=== PATIENT | male | born 1980 | race Hispanic/Latino ===

== ENCOUNTER 2019-08-22 09:34 | Inpatient (IN) | payer OTHER, SELFPAY ==
[2019-08-22] MEDS ORDERED: Heparin 1,000 UNITS/ML VIAL ONE (10:00)
[2019-08-22 12:57] VITALS: BMI 36.5
[2019-08-22] MEDS ORDERED: Lidocaine 1% (PF) 30 ML VIAL ONE (13:42)
[2019-08-22] MEDS ORDERED: Ondansetron ODT 4 MG TAB PO PRN (15:12)
[2019-08-22] MEDS ORDERED: Ondansetron PF 4 MG/2 ML Vial IVP PRN (15:12)
[2019-08-22] MEDS ORDERED: traMADol HCl 50 MG TAB PO PRN (15:15)
[2019-08-22] MEDS ORDERED: Pharmacy to Dose 1 EACH VANCOMYCIN IVPB PRN (15:27)
[2019-08-22] MEDS: Acetaminophen 500 MG TAB PO PRN (16:08)
[2019-08-22] MEDS: Ibuprofen 600 MG TAB PO PRN (16:09)
[2019-08-22] MEDS: Morphine 2 MG/ML SYRINGE SLOW IVP PRN (16:09)
[2019-08-22] MEDS: Vancomycin HCl 1.75 GM in Sodium Chloride 0.9% 500 ML IVPB SCH (17:23)
--- NOTE | 2019-08-22 19:13 | HP ---
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 The patient states that 5 days ago, he experienced a fall in the oil field near [place] when he fell and hit the posterior aspect of his knee on a pipe. He continued to work and ambulate, but had progressively worsening pain. He went to the [place] [facility], where he said x-rays were not performed. He went to [facility] yesterday, where they appreciated cellulitis of his left leg. They treated him with antibiotics, Rocephin and Cleocin. They noted that there was not much improvement over the 12 hours he was there and requested asking for transfer. He was admitted directly to [facility] surgery floor. His white count today is 14,000, hemoglobin 14.5, sodium 136, potassium 3.9, glucose 168, creatinine 1, GFR 60, BUN 14. Liver function tests, normal. The patient had a CAT scan of his left lower extremity without IV contrast revealing absence of any fractures, but soft tissue swelling in the lower extremity due to cellulitis below the knee. There was no joint effusion. Ultrasound of the left leg revealed absence of DVT. The patient has been ambulatory. Denies any pain with flexion or extension of the knee. ALLERGIES: PENICILLIN. SOCIAL HISTORY: Tobacco, none. Alcohol, rarely. PAST SURGICAL HISTORY: Lumbar surgery years ago. PAST MEDICAL HISTORY: Noncontributory. REVIEW OF SYSTEMS: Noncontributory. PHYSICAL EXAMINATION: VITAL SIGNS: Height 5 feet 9 inches, 247 pounds, 36 BMI, temperature 98.5 degrees, heart rate 81, blood pressure 134/74. HEAD, EARS, EYES, NOSE, AND THROAT: Unremarkable. LUNGS: Clear to auscultation. CARDIAC: Regular rate and rhythm without murmur or gallop. ABDOMEN: Soft and nontender. No masses. No hernias. EXTREMITIES: Tattoo, posterior calf below his knee. There is some ecchymosis, posterior leg. There are cellulitis and tenderness over his anterior left leg. There is an area of fluctuance about 2 cm, midline, upper left leg below the knee. Good palpable pedal pulses. ASSESSMENT AND PLAN: Left leg cellulitis. No demonstrable abscess clinically, nor seen on CAT scan at [facility]. We will place him on clindamycin, cefepime, and vancomycin. Ask Pharmacy to dose the vancomycin. We will at the bedside drain collection below his knee, which was performed, and only a slight amount of old blood was seen, no purulent material; however, it was sent for culture. We will follow him clinically and observe him. Further radiological imaging per clinical course. Job ID: [id number]
[2019-08-22] MEDS: Enoxaparin Sodium 40 MG/0.4 ML SYRINGE SC SCH (20:42)
[2019-08-22] MEDS: Cefepime 2 GM in Sodium Chloride 0.9% 100 ML IVPB SCH (20:42)
[2019-08-22] MEDS ORDERED: Vancomycin HCl 1.5 GM in Sodium Chloride 0.9% 250 ML 300 ML IVPB SCH (21:00)
[2019-08-22] MEDS: Clindamycin/D5W 900 MG in Premix Bag 1 BAG IVPB SCH (22:17)
[2019-08-23] MEDS: Vancomycin HCl 1.75 GM in Sodium Chloride 0.9% 500 ML IVPB SCH ×2 (04:43→17:23)
[2019-08-23 05:03] LABS: ALT (SGPT) 36 U/L (8-55); AST (SGOT) 44 U/L (5-34); Albumin 2.7 g/dL (3.5-5.0); Alkaline Phosphatase 112 U/L (40-110); Anion Gap 9 mmol/L (10-20); BUN (Urea Nitrogen) 13 mg/dL (8.9-20.6); Bilirubin, Total 1.6 mg/dL (0.2-1.2); Calc. Creatinine Clearance 198 mL/min (70-130); Calcium 7.7 mg/dL (7.8-10.44); Carbon Dioxide 24 mmol/L (22-29); Chloride 107 mmol/L (98-107); Estimated GFR-MDRD Greater than 90; Glucose 130 mg/dL (70-105); Potassium 4.2 mmol/L (3.5-5.1); Protein, Total 5.7 g/dL (6.0-8.3); Sodium 136 mmol/L (136-145)
[2019-08-23 05:06] LABS: Hemoglobin A1c 4.8 % (4.0-6.0)
[2019-08-23 05:10] LABS: #Eosinphils 0.3 thou/uL (0.0-0.7); #Lymphocytes 0.9 thou/uL (1.20-3.40); #Monocytes 0.9 thou/uL (0.11-0.59); #Neutrophils 6.4 thou/uL (1.40-6.50); %Basophils 0.3 % (0.0-1.0); %Eosinophils 3.8 % (0.0-10.0); %Monocytes 10.4 % (0.0-10.0); %Neutrophils 75.5 % (42.0-75.0); Hemoglobin 13.9 g/dL (14.0-18.0); Mean Corpuscular HGB CONC 35.7 g/dL (32.0-36.0); Mean Corpuscular Hemoglobin 36.2 pg (27.0-31.0); Mean Platelet Volume 8.7 fL (7.4-10.4); Platelet Count 48 thou/uL (130-400); Platelet Morphology Comment Appears Decreased; RBC Distribution Width 12.8 % (11.5-14.5); Red Blood Cell (RBC) Count 3.84 mill/uL (4.70-6.10); White Blood Cell (WBC) Count 8.5 thou/uL (4.8-10.8)
[2019-08-23] MEDS: traMADol HCl 50 MG TAB PO PRN (07:05)
[2019-08-23] MEDS: Clindamycin/D5W 900 MG in Premix Bag 1 BAG IVPB SCH ×3 (08:15→21:59)
--- NOTE | 2019-08-23 08:24 | OP ---
DATE OF PROCEDURE: 08/22/2019 PREOPERATIVE DIAGNOSIS: Left leg cellulitis with small abscess, anterior upper leg below the knee. POSTOPERATIVE DIAGNOSIS: Left leg cellulitis with small abscess, anterior upper leg below the knee. PROCEDURES PERFORMED: Incision and drainage of abscess, simple. ANESTHESIA: 1% Xylocaine. DESCRIPTION OF PROCEDURE: The patient was at bedside. Left leg was prepared with ChloraPrep over the fluctuant area just below the knee in the upper anterior left leg. A small incision was made with 11 blade and some old bloody tissue, sent for culture. There was no purulence noted. We did undermine medially and laterally approximately 2 cm superiorly 0.5 cm and inferiorly 1 cm. There were no tracts appreciated. Wound was packed open with a gauze dressing, wrapped with Coban. The patient tolerated the procedure well. Job ID: [id number]
[2019-08-23] MEDS: Morphine 2 MG/ML SYRINGE SLOW IVP PRN (08:44)
[2019-08-23] MEDS: Ibuprofen 600 MG TAB PO PRN ×2 (08:45→15:02)
[2019-08-23] MEDS: Cefepime 2 GM in Sodium Chloride 0.9% 100 ML IVPB SCH ×2 (08:45→19:58)
[2019-08-23] MEDS: Acetaminophen 500 MG TAB PO PRN ×2 (08:45→15:02)
[2019-08-23] MEDS: Polyethylene Glycol 3350 17 GM Packet PO SCH (08:53)
--- NOTE | 2019-08-23 13:11 | PRG ---
DATE OF SERVICE: 08/23/2019 Vasiliy Chavez is doing well today. He has remained afebrile. This morning, his white count is 8, hemoglobin 13. The small hematoma fluid evacuated from his anterior proximal leg yesterday. Gram stain only reveals white cells. This is consistent with what was seen in his old blood. The patient continues to have pain in his anterior left leg with cellulitis. He had a CAT scan that demonstrated absence of any fracture, but we will obtain x-rays of his left leg and knee to assure there are no fractures. Continue antibiotics, elevation. He is ambulating without problems. Job ID: [id number]
--- NOTE | 2019-08-23 14:48 | RAD ---
FOUR VIEWS OF THE LEFT KNEE: COMPARISON: None. HISTORY: Left knee pain. FINDINGS: Four views of the left knee show no evidence of acute fracture or dislocation. No knee effusion is s een. Mild osteophytes are seen in all 3 compartments consistent with osteoarthritis. IMPRESSION: Mild left knee osteoarthritis without acute osseous abnormality. POS: TPC
--- NOTE | 2019-08-23 15:38 | RAD ---
TWO VIEWS LEFT TIBIA/FIBULA: 08/23/19 COMPARISON: None. HISTORY: Trauma with left leg pain. FINDINGS: Two views of the left tibia/fibula shows no evidence of acute fracture or dislocation. Moderate diffu se soft tissue swelling is seen. Phleboliths are seen in the pretibial soft tissues. IMPRESSION: No evidence of acute osseous abnormality. POS: TPC
[2019-08-23] MEDS: Enoxaparin Sodium 40 MG/0.4 ML SYRINGE SC SCH (21:55)
[2019-08-24] MEDS: Morphine 4 MG/ML VIAL SLOW IVP PRN (03:05)
[2019-08-24] MEDS: Vancomycin HCl 1.75 GM in Sodium Chloride 0.9% 500 ML IVPB SCH (04:01)
[2019-08-24] MEDS: Clindamycin/D5W 900 MG in Premix Bag 1 BAG IVPB SCH ×3 (06:56→22:25)
[2019-08-24] MEDS: Cefepime 2 GM in Sodium Chloride 0.9% 100 ML IVPB SCH ×2 (08:48→20:49)
[2019-08-24] MEDS: Acetaminophen 500 MG TAB PO PRN ×3 (08:48→20:54)
[2019-08-24] MEDS: Ibuprofen 600 MG TAB PO PRN ×3 (08:48→20:54)
[2019-08-24] MEDS: Morphine 2 MG/ML SYRINGE SLOW IVP PRN (08:48)
[2019-08-24] MEDS: Polyethylene Glycol 3350 17 GM Packet PO SCH (08:53)
--- NOTE | 2019-08-24 13:28 | PRG ---
DATE OF SERVICE: 08/24/2019 SUBJECTIVE: Vasiliy Chavez is doing well today. His left leg is not much better than yesterday. He still has cellulitis over the anterior leg. The patient's wound did not open, drained small hematoma, it is healthy. There is undermining. It was repacked with saline wet-to-dry dressing. Cultures obtained on 08/22/2019 are still pending. No organisms are seen. This clinically looks like an old hematoma. Currently, the patient is still having quite a bit of pain. X-rays of the leg are negative for fracture. CAT scan obtained from the emergency room was unremarkable per report except for soft tissue swelling. ASSESSMENT AND PLAN: Left leg cellulitis, infection of soft tissue. This is not improving, but it is not worsening. There is no blistering. There are no physical changes to suggest further surgical intervention at this time. He is allergic to penicillin. We will request that Dr. Samuels see him to see if he can add any other suggestion as far as antibiotic care and treatment to expedite discharging to home on oral therapy. We will await Dr. Samuels' opinion. Job ID: [id number]
--- NOTE | 2019-08-24 15:52 | ULT ---
LEFT LOWER EXTREMITY VENOUS DOPPLER EXAM: 08/24/19 HISTORY: Patient fell one week ago. Increasing swelling, edema and redness in cap and knee region. Real time color Doppler evaluation of the left lower extremity was performed from groin to calf . Thi s includes evaluation of the common femoral, superficial and profunda femoral, saphenous, popliteal a nd posterior tibial veins. This shows a patent deep venous system with normal compressibility and aug mentation. There are edema changes within the soft tissues of the calf. IMPRESSION: No evidence of DVT of the left lower extremity. POS: HAYDEN
[2019-08-24 16:39] LABS: Vancomycin, Trough 6.1 ug/mL
[2019-08-24] MEDS: Vancomycin HCl 1.5 GM in Sodium Chloride 0.9% 250 ML 300 ML IVPB SCH (17:28)
[2019-08-24] MEDS: Enoxaparin Sodium 40 MG/0.4 ML SYRINGE SC SCH (21:04)
[2019-08-24 23:14] LABS: HBSAB Concentration 0.42 mIU/mL; HBSAg Index 0.18 S/CO (0-0.99); HIV (1/2) Antibody/Antigen Non-Reactive (NonReactive); HIV 1/2 INDEX 0.08 S/CO (<1.00); Hep B Surf AB Non-Reactive (NonReactive); Hep B Surf Ag Non-Reactive S/CO (NonReactive); Hep C IgG Ab Non-Reactive (NonReactive); Hep C Index 0.07 S/CO (0-0.79)
[2019-08-25] MEDS: Vancomycin HCl 1.5 GM in Sodium Chloride 0.9% 250 ML 300 ML IVPB SCH ×3 (00:11→17:31)
--- NOTE | 2019-08-25 02:00 | CON ---
DATE OF CONSULTATION: 08/24/2019 REASON FOR CONSULTATION: Inflammatory process, left leg. HISTORY OF PRESENT ILLNESS: A 39-year-old who did not have much of a past medical history. He had a surgical procedure few years ago in the back. 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 His temperature is 98.5. He had limited debridement of a little spot in the infrapatellar area by Dr. Griffin and I reviewed his operative note. There were some bloody tissue noted, but no purulence. The wound was packed. He continues to have inflammatory changes extending from the calf wrapping around the entire calf all the way down to the ankle, but no single area of more prominence or discoloration. Denies any headaches. No visual symptoms, sore throat, odynophagia, dysphagia. No back pain, no shortness of breath or chest pain. No abdominal pain. No diarrhea. No genitourinary symptoms. No other joint symptoms. PAST MEDICAL HISTORY: Negative. PAST SURGICAL HISTORY: Lumbar laminectomy. ALLERGIES: PENICILLIN WITH RASH. 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 . Lives in [place]. No smoking. No drug use. Does not drink much. FAMILY HISTORY: Noncontributory. PHYSICAL EXAMINATION: VITAL SIGNS: He has been afebrile, T-max 99.2, blood pressure 130/70, pulse 72, respirations 18, O2 saturation 100. SKIN: Exam shows erythema with swelling of the left leg wrapped with a circumferential involvement of the calf. It does not involve much of the ankle. It is more circumscribed around the calf region close to the popliteal and pretty much the entire calf. There is a noticeable area of debridement in the anterior aspect right at the infrapatellar region. No other skin lesions. The patient has a number of tattoos in his body. No lymphadenopathy. HEENT: Ocular movements conjugate. Oral cavity normal. NECK: Supple. LUNGS: Symmetric, clear breath sounds. HEAR: Normal without murmurs. No S3 or S4. ABDOMEN: Soft, not distended or tender. No ascites. No bladder distention. No genital abnormalities. NEUROLOGIC: Nonfocal. Cognitive function is normal. LABORATORY DATA: White cell count 8.5, hemoglobin 13.9, platelets 40,000 with 75% neutrophils. Sodium 136, creatinine 0.78 with a bilirubin of 1.6, AST 44, albumin 2.7. Serum total protein 5.7. Vancomycin trough 6.1, and cultures from the area of debridement with no organisms seen. ASSESSMENT: 1. Inflammatory process left leg after injury while working in an oil rig. 2. Thrombocytopenia. 3. Abnormal liver function tests. DISCUSSION: The differential diagnosis includes cellulitis versus an abscess in the left calf region. The patient has thrombocytopenia and abnormal liver function tests and #1 concern is chronic liver disease, possible association with chronic hepatitis C or B. We will order an MRI of the leg to evaluate for abscess. If that is not present, then just treat as cellulitis. Regarding the possibility of chronic liver disease and cirrhosis, we will need hepatitis serology and liver ultrasound. Further assays/studies depending on results of hepatitis serology. The patients with chronic liver disease can develop gram-negative lottie cellulitis and will need to add coverage for that, if not yet initiated. Cefepime + Vanco is felt to be adequate for now. Job ID: [id number] MTDD
[2019-08-25] MEDS: Acetaminophen 500 MG TAB PO PRN ×3 (03:59→23:51)
[2019-08-25] MEDS: traMADol HCl 50 MG TAB PO PRN (03:59)
[2019-08-25] MEDS: Clindamycin/D5W 900 MG in Premix Bag 1 BAG IVPB SCH ×3 (05:25→21:23)
[2019-08-25] MEDS: Cefepime 2 GM in Sodium Chloride 0.9% 100 ML IVPB SCH ×2 (08:59→20:37)
[2019-08-25] MEDS: Polyethylene Glycol 3350 17 GM Packet PO SCH (08:59)
[2019-08-25] MEDS: Morphine 4 MG/ML VIAL SLOW IVP PRN ×2 (11:27→17:34)
[2019-08-25] MEDS: Ibuprofen 600 MG TAB PO PRN ×2 (11:27→23:51)
--- NOTE | 2019-08-25 15:44 | MRI ---
LEFT LOWER EXTREMITY MRI WITH AND WITHOUT IV CONTRAST: HISTORY: Left leg swelling and erythema, worsening. FINDINGS: Extensive diffuse subcutaneous edema and subcutaneous fat stranding. There is more focally prominent somewhat more focally fluid density changes in the superficial subcutaneous tissues anteriorly, prim arily overlying the tibia measuring approximately 0.9 cm in AP dimension and 9 cm in transverse dimen delilah, and approximately 15 cm in craniocaudal dimension. These findings are nonspecific and could re present some extensive focal edematous fluid. Certainly, the possibility of this fluid being infecte d is a consideration. If that is a concern, then incision and drainage might be considered. There i s some associated superficial fasciitis. There is some scattered mild superficial intramuscular sign al, evidence for possible myositis, particularly the anterior compartment and the anterior portion of the medial gastrocnemius muscle. There is some minimal fluid interposed between the soleus and the medial gastrocnemius muscle. No evidence for intramuscular abscess or myonecrosis. No evidence for necrosing fasciitis. No evidence for osteomyelitis. IMPRESSION: 1. Extensive subcutaneous fat stranding, evidence for edema and/or cellulitis. 2. Somewhat more focally prominent fluid in the superficial subcutaneous tissues, evidence for more focal infected versus noninfected subcutaneous superficial fluid. If there is concern that this is i nfected, followup incision and drainage might be considered. 3. Superficial fasciitis. 4. Evidence for superficial myositis, particularly involving the anterior compartment muscles as wel l as the portion of the medial gastrocnemius muscle with some fluid between the medial gastrocnemius muscle and the medial soleus muscle. No evidence for myonecrosis or deep necrosing fasciitis. POS: TPC
[2019-08-25 16:43] LABS: Vancomycin, Trough 18.9 ug/mL
--- NOTE | 2019-08-25 21:33 | PRG ---
DATE OF SERVICE: 08/25/2019 SUBJECTIVE: Mr. Chavez is doing well today. He is afebrile. He reports left leg swelling has gone down. Ultrasound of his left leg negative for DVT. Dr. Samuels has seen him and concurs with current antibiotic administration. Lower extremity MRI has been ordered. This demonstrates extensive subcutaneous fat stranding consistent with cellulitis. Some evidence of anterior compartment myositis and portion of the gastrocs muscle with some fluid present. No evidence for necrosis. No evidence for necrotizing fasciitis. ASSESSMENT/PLAN: Soft tissue infection left leg, traumatic, occurring on the job. This was definitely not present prior to his injury. This all occurred as a result of his injury. Continue intravenous antibiotics and await improvement. Job ID: [id number]
[2019-08-25] MEDS: Enoxaparin Sodium 40 MG/0.4 ML SYRINGE SC SCH ×2 (21:49→23:51)
[2019-08-26] MEDS: Vancomycin HCl 1.5 GM in Sodium Chloride 0.9% 250 ML 300 ML IVPB SCH ×3 (01:08→18:19)
[2019-08-26 04:10] LABS: #Eosinphils 0.2 thou/uL (0.0-0.7); #Lymphocytes 1.4 thou/uL (1.20-3.40); #Monocytes 0.5 thou/uL (0.11-0.59); #Neutrophils 4.6 thou/uL (1.40-6.50); %Basophils 0.7 % (0.0-1.0); %Eosinophils 3.2 % (0.0-10.0); %Lymphocytes 20.5 % (21.0-51.0); %Monocytes 7.7 % (0.0-10.0); %Neutrophils 67.9 % (42.0-75.0); Hemoglobin 13.9 g/dL (14.0-18.0); Mean Corpuscular HGB CONC 35.7 g/dL (32.0-36.0); Mean Corpuscular Hemoglobin 35.7 pg (27.0-31.0); Mean Platelet Volume 9.1 fL (7.4-10.4); Platelet Count 67 thou/uL (130-400); RBC Distribution Width 12.8 % (11.5-14.5); Red Blood Cell (RBC) Count 3.91 mill/uL (4.70-6.10); White Blood Cell (WBC) Count 6.8 thou/uL (4.8-10.8)
[2019-08-26] MEDS: Clindamycin/D5W 900 MG in Premix Bag 1 BAG IVPB SCH ×3 (05:34→21:28)
[2019-08-26] MEDS: Cefepime 2 GM in Sodium Chloride 0.9% 100 ML IVPB SCH ×2 (08:19→20:21)
[2019-08-26] MEDS: Polyethylene Glycol 3350 17 GM Packet PO SCH (08:20)
[2019-08-26] MEDS: traMADol HCl 50 MG TAB PO PRN (11:30)
[2019-08-26] MEDS: Morphine 2 MG/ML SYRINGE SLOW IVP PRN (14:17)
--- NOTE | 2019-08-26 14:51 | PRG ---
DATE OF SERVICE: 08/26/2019 SUBJECTIVE: Vasiliy Chavez is doing well today. His vital signs stable, afebrile. His leg feels slightly better. MRI scan reveals mild cytosis and edema, but no drainable fluid collection. He does have edema of the left ankle and foot and leg with some cellulitic changes. There is no obvious drainable fluid collection. Hepatitis serology and HIV serology negative. The patient states he does not drink significant alcohol. LABORATORY DATA: Platelet count 67,000. White count 6.8, hemoglobin 13. Bilirubin 1.6, AST 44, and alkaline phosphatase 112. ASSESSMENT AND PLAN: Left leg cellulitis, traumatic on the job injury. This was not preexisting. 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 Continue intravenous antibiotics. Dr. Samuels is following with me. He does have thrombocytopenia, etiology uncertain. Continue Lovenox as his thrombocytopenia is improved slightly even while on Lovenox. Job ID: [id number]
[2019-08-26] MEDS: Morphine 4 MG/ML VIAL SLOW IVP PRN (16:41)
[2019-08-26] MEDS: Enoxaparin Sodium 40 MG/0.4 ML SYRINGE SC SCH (20:22)
[2019-08-26] MEDS: Ibuprofen 600 MG TAB PO PRN (20:32)
[2019-08-26] MEDS: Acetaminophen 500 MG TAB PO PRN (20:33)
[2019-08-27] MEDS: Vancomycin HCl 1.5 GM in Sodium Chloride 0.9% 250 ML 300 ML IVPB SCH ×3 (00:41→17:11)
[2019-08-27] MEDS: Clindamycin/D5W 900 MG in Premix Bag 1 BAG IVPB SCH ×2 (05:44→14:19)
[2019-08-27] MEDS: Cefepime 2 GM in Sodium Chloride 0.9% 100 ML IVPB SCH (09:02)
[2019-08-27] MEDS: Polyethylene Glycol 3350 17 GM Packet PO SCH (09:05)
[2019-08-27] MEDS: Acetaminophen 500 MG TAB PO PRN ×2 (09:06→20:43)
[2019-08-27] MEDS: Ibuprofen 600 MG TAB PO PRN ×2 (09:06→20:44)
--- NOTE | 2019-08-27 14:48 | PRG ---
DATE OF SERVICE: 08/27/2019 SUBJECTIVE: Vasiliy Chavez is doing well today. His leg looks so much better. He is ambulating better. There is less swelling in the leg, less cellulitis. ASSESSMENT AND PLAN: Improvement of his left leg. I would recommend he be discharged home tomorrow on oral antibiotics. We will talk to Dr. Samuels about his oral antibiotic regimen. Plan is to discharge home tomorrow, if he continues to do well. Job ID: [id number]
--- NOTE | 2019-08-27 15:12 | PRG ---
DATE OF SERVICE: 08/27/2019 SUBJECTIVE: Feeling better, still areas of tenderness in the left leg as noted below. No headaches, visual symptoms, sore throat, odynophagia, dysphagia. No cough or sputum production, no chest pain, no abdominal pain or diarrhea. OBJECTIVE: VITAL SIGNS: T-max 98.6, blood pressure 130/80, pulse 68, respirations 16, O2 saturation 99. EXTREMITIES: The left leg still with areas of swelling and erythema and some areas of what appears to be early blistering in the proximal anterior left leg. The popliteal fossa appears normal. Most of the inflammatory process are localized in the anterior parts of the left leg. No drainage is noted at this point in time. LUNGS: Clear. HEART: S1, S2. No murmurs. No S3. ABDOMEN: Soft, not distended or tender. No bladder distention. LABORATORY DATA: White cell count 6.8, hemoglobin 13.9, platelets 67,000, and 67% neutrophils. Sodium 138, creatinine 0.78 with a bilirubin 1.6, AST 44. ASSESSMENT AND DISCUSSION: 1. Cellulitis, left leg, following injury. 2. Abnormal liver function tests with thrombocytopenia. The hepatitis serology was negative. The liver ultrasound was not ordered yet. We will go ahead and order a liver ultrasound and check his antinuclear antibody test and ferritin, iron and iron binding capacity. In terms of continuation of treatment, still quite a bit of inflammation there and in view of the lack of microbiological information, we will consider continuation of IV antimicrobial therapy in the outpatient setting for another 7 to 14 days. PICC line placement. This will allow early discharge planning. Job ID: [id number]
[2019-08-27] MEDS: cefTRIAXone\\ROCEPHIN 2 GM in Sodium Chloride 0.9% 100 ML IVPB SCH (16:55)
--- NOTE | 2019-08-27 18:35 | ULT ---
COMPLETE ABDOMEN ULTRASOUND: Indication: Abnormal lfts with thrombocytopenia. Comparison: None. FINDINGS: There is cirrhotic morphology of the liver. No focal hepatic lesion is identified. The spleen is enlarged measuring 13.83 cm. Gallbladder is decompressed. No Germain's sign is reported. Common bile duct measures 2.9 mm. Pancreas is obscured by overlying bowel gas. The right kidney measures 13 cm in length and the left measures 14.7 cm. Right renal cortex is 1.7 cm , left measures 1.9 cm. No hydronephrosis is evident. There is hepatopedal flow seen within the main portal vein. IMPRESSION: Findings of cirrhosis with portal hypertension. POS: BH
[2019-08-27 19:23] LABS: Iron 46 ug/dL (65-175); Iron Binding Capacity, Total 175 mcg/dL (261-462)
[2019-08-27] MEDS: Enoxaparin Sodium 40 MG/0.4 ML SYRINGE SC SCH (20:43)
[2019-08-28] MEDS: Vancomycin HCl 1.5 GM in Sodium Chloride 0.9% 250 ML 300 ML IVPB SCH ×3 (00:49→17:05)
[2019-08-28] MEDS: Polyethylene Glycol 3350 17 GM Packet PO SCH (09:08)
[2019-08-28 10:58] LABS: ANA Symphony (Qualitative) Negative (Negative); ANA Symphony (Quantitative) 0.3 Ratio (< 0.7 Negative); dsDNA IgG Antibody 1.1 IU/mL (<10 Negative)
[2019-08-28] MEDS: traMADol HCl 50 MG TAB PO PRN (15:50)
[2019-08-28] MEDS: cefTRIAXone\\ROCEPHIN 2 GM in Sodium Chloride 0.9% 100 ML IVPB SCH (15:51)
[2019-08-28 16:19] LABS: Vancomycin, Trough 10.3 ug/mL
[2019-08-28] MEDS ORDERED: Clopidogrel Bisulfate 75 MG TAB ONE (18:01)
[2019-08-28] MEDS: Vancomycin HCl 1.75 GM in Sodium Chloride 0.9% 500 ML IVPB SCH (18:11)
--- NOTE | 2019-08-28 19:29 | PRG ---
DATE OF SERVICE: 08/28/2019 Vasiliy Chavez is doing well today. His ultrasound demonstrated cirrhosis. His hepatitis serology is negative. Gastroenterology, Dr. Caldwell Has Seen Him, his dictation is pending. Followup outpatient recommended. Dr. Samuels recommended a PICC line. I will order the PICC line, and Dr. Samuels will arrange outpatient antibiotics. Overall, his left leg is better. Anticipate discharge in the next day or 2 once outpatient antibiotic regimen is arranged by Dr. Samuels. Job ID: [id number]
--- NOTE | 2019-08-28 19:30 | CON ---
DATE OF CONSULTATION: 08/28/2019 REQUESTING PHYSICIAN: Erasto Griffin MD REASON FOR CONSULTATION: Cirrhosis. HISTORY OF PRESENT ILLNESS: Vasiliy Chavez is a very pleasant 39-year-old man, who was admitted to the hospital on 08/22/2019 with lower extremity cellulitis. He has a history of prior back surgery, but otherwise no significant past medical or surgical history. He has multiple family members with diabetes, but no known family history of liver disease. He has been receiving broad-spectrum antibiotics. He has also been found on laboratory studies to have thrombocytopenia as well as mild LFT elevation. An abdominal ultrasound was performed yesterday and demonstrated cirrhotic morphology of the liver as well as mild splenomegaly and hepatopetal flow in the portal vein. The patient says he has no more than 6 to 8 alcoholic beverages in the course of a week. No drug use. He denies any prior history of liver disease or hepatitis. There is no history of jaundice, ascites, encephalopathy, or GI bleeding. He is currently asymptomatic aside from his lower extremity cellulitis. REVIEW OF SYSTEMS: Full review of systems including constitutional, head, eyes, ears, nose, throat, GI, , cardiovascular, respiratory, musculoskeletal, and neurologic systems is negative except as noted in the HPI. PAST MEDICAL HISTORY: Lumbar spine surgery years ago and lower extremity cellulitis. ALLERGIES: PENICILLIN. INPATIENT MEDICATIONS: 1. Tylenol p.r.n. 2. Ceftriaxone 2 g IV q.24 hours. 3. Lovenox. 4. Ibuprofen p.r.n. 5. Morphine p.r.n. 6. Tramadol p.r.n. 7. Vancomycin 1.5 g q.8 hours IV. SOCIAL HISTORY: He will have 6 to 8 alcoholic beverages over the course of weekend. No smoking. No drug use. FAMILY HISTORY: Negative for liver disease that he knows of. PHYSICAL EXAMINATION: VITAL SIGNS: Temperature 98.6, pulse 74, blood pressure 155/89, and 99% oxygen saturation on room air. GENERAL: A 39-year-old man, lying in bed comfortably, in no distress. SKIN: Multiple tattoos in the upper extremities bilaterally. No jaundice. EYES: No scleral icterus. Extraocular movements intact. ENT: Mucous membranes moist. No oral lesions. LYMPH: No submandibular or supraclavicular lymphadenopathy. THYROID: Nontender to palpation. HEART: Regular rate and rhythm. LUNGS: Clear to auscultation bilaterally. ABDOMEN: Soft and nontender to palpation. EXTREMITIES: No peripheral edema. VESSELS: Radial pulses 2+ bilaterally. NEUROLOGIC: Cranial nerves 2 through 12 intact bilaterally. No asterixis. MENTAL: Alert and fully oriented, pleasant, conversational. Can give a detailed coherent history. LABORATORY STUDIES: WBC 6.8, hemoglobin 13.9, platelets 67. BUN 13, creatinine 0.78. Total bilirubin 1.6, alkaline phosphatase 112, AST 44, ALT 36, albumin 2.7, ferritin 519, iron 46, TIBC 175, and AFP 4. Hepatitis B surface antigen negative. Hepatitis B surface antibody negative. Hepatitis C antibody negative. HIV antibody negative. IMAGING STUDIES: Abdominal ultrasound from yesterday demonstrates cirrhotic morphology of the liver, but no focal hepatic lesion, splenomegaly to 13.8 cm, hepatopetal flow in the portal vein, normal-appearing gallbladder and common bile duct. ASSESSMENT AND PLAN: 1. Cirrhosis, well compensated, unknown etiology at this point. 2. Thrombocytopenia, secondary to splenomegaly and portal hypertension. The patient does indeed appear to have cirrhosis based on characteristic liver morphology as well as evidence of portal hypertension and thrombocytopenia. Otherwise, this appears to be very well compensated with no prior known history of liver disease. I am not sure I can blame alcohol completely for this, given the amount of consumption that he reports. I note the negative viral hepatitis serologies. We will go ahead and round out laboratory studies to include hemochromatosis genetic profile, ASMA, AMA, ceruloplasmin, and alpha-1 antitrypsin level. We will get an INR with morning labs as well. This can all be followed up in the outpatient setting, which we will try to arrange depending on results, due to his relatively young age, he may be one in which we seriously consider sending for liver biopsy at some point. In the meantime, I did advise him to completely avoid all alcohol going forward. We will plan for outpatient EGD for variceal screening at some point as well. He will need HCC screening with abdominal ultrasound and AFP level at least every 6 months, and I explained this to him in detail. GI will sign off, but plan for outpatient followup and lab review in the near future. Thank you for the consultation. Please call anytime with questions or concerns. Job ID: [id number]
[2019-08-28] MEDS: Enoxaparin Sodium 40 MG/0.4 ML SYRINGE SC SCH (21:30)
[2019-08-29] MEDS: Vancomycin HCl 1.75 GM in Sodium Chloride 0.9% 500 ML IVPB SCH ×3 (02:07→18:34)
[2019-08-29] MEDS: Acetaminophen 500 MG TAB PO PRN (03:05)
[2019-08-29 05:13] LABS: INR-International Normal Ratio 1.3; Prothrombin Time 16.4 SEC (12.0-14.7)
[2019-08-29] MEDS: Polyethylene Glycol 3350 17 GM Packet PO SCH (09:04)
--- NOTE | 2019-08-29 16:11 | SPC ---
Ultrasound and Fluoroscopic guided left upper extremity PICC placement HISTORY: Lower extremity infection. Patient needs long-term IV antibiotics. FINDINGS: Informed consent obtained prior to the procedure. An appropriate access site was determined with ultrasound guidance. The area was then meticulously pr epped and draped in usual sterile fashion. Skin overlying the left basilic vein anesthetized with 1% buffered lidocaine. Utilizing direct sonogr aphic guidance, vascular access is obtained via the left basilic vein, and an 0.018in guidewire was advanced to the cavoatrial junction. Intravascular length is calculated at 40.5 cm, and the PICC is c ut accordingly. Needle is removed and replaced with a peel-away sheath. The PICC was advanced over the wire. Wire and peel-away sheath were removed. The tip of the catheter overlies the cavoatrial junction. The catheter was accessed and aspirated/flushed easily. Exposure data: 0.6 minutes of fluoroscopic time 5682 mGy centimeter squared FINDINGS: Technically successful placement of a 40.5 centimeter single lumen 5 Romansh left upper extremity PICC line. IMPRESSION: Successful ultrasound guided placement of a left upper extremity PICC.
[2019-08-29] MEDS: cefTRIAXone\\ROCEPHIN 2 GM in Sodium Chloride 0.9% 100 ML IVPB SCH (17:16)
[2019-08-29 17:29] LABS: Vancomycin, Trough 15.4 ug/mL
--- NOTE | 2019-08-29 17:38 | PRG ---
DATE OF SERVICE: 08/29/2019 SUBJECTIVE: Feeling better. There is a lot of drainage of purulent material from the infrapatellar area and feels much better now that this happened, had a PICC line placed. No chest pain, shortness of breath, or abdominal pain. No diarrhea. No genitourinary symptoms. OBJECTIVE: VITAL SIGNS: His temperature has been normal for a while now. Other vital signs are normal. GENERAL: Awake, alert, and oriented. LUNGS: Clear. HEART: S1 and S2, regular rate. ABDOMEN: Soft, not distended. SKIN: The left infrapatellar region with an open wound, which I probed and sent cultures. The area of erythema centered mostly around this area. LABORATORY DATA: White cell count 6.8, hemoglobin 13.9, platelets 67,000. ASSESSMENT AND DISCUSSION: Cellulitis, probably abscess, infrapatellar region, now became more clear. Abnormal liver function tests with thrombocytopenia. Negative hepatitis serology. The ferritin was elevated at 519. The iron was 46 and TIBC was low at 175, percent saturation was low at 26. DOMINICK was negative. The abdomen ultrasound demonstrated findings of cirrhosis with portal hypertension. The patient has liver cirrhosis of uncertain etiology and now presented with inflammatory process, likely infrapatellar bursitis, left lower extremity. We will discharge him on IV daptomycin. He will need to follow up for his liver cirrhosis with Gastroenterology. He does have portal hypertension and probably will need an EGD to evaluate for esophageal varices and will need to complete the workup for the etiology. It seems like he is going to turn up with idiopathic liver cirrhosis. May need a liver biopsy for diagnostic evaluation. Regarding his infrapatellar infection, probably an abscess and methicillin-resistant Staphylococcus aureus/methicillin-susceptible Staphylococcus aureus is most likely culprit here. Cultures have been submitted. We will plan on daptomycin downstairs for about 10 days approximately. Follow up the results of cultures. Job ID: [id number]
--- NOTE | 2019-08-29 19:01 | PRG ---
DATE OF SERVICE: 08/29/2019 SUBJECTIVE: Vasiliy Chavez is doing well today. The patient has had his PICC line placed. We are awaiting Dr. Samuels' and case worker's arrangement for outpatient antibiotics. Anticipate discharge home tomorrow on antibiotics. There has been no change in his left lower leg status, possibly will improve with slow improvement on a daily basis. Job ID: [id number]
[2019-08-29] MEDS: Enoxaparin Sodium 40 MG/0.4 ML SYRINGE SC SCH (20:25)
[2019-08-29] MEDS: Morphine 2 MG/ML SYRINGE SLOW IVP PRN (20:36)
[2019-08-30] MEDS: Vancomycin HCl 1.75 GM in Sodium Chloride 0.9% 500 ML IVPB SCH ×2 (01:46→09:54)
[2019-08-30] MEDS: Polyethylene Glycol 3350 17 GM Packet PO SCH (09:43)
[2019-08-30 11:42] LABS: EliA Vaculitis New Method **** NEW METHOD ****
[2019-08-30 15:11] VITALS: BP 144/78; TEMP 97.8
[2019-08-30] MEDS: cefTRIAXone\\ROCEPHIN 2 GM in Sodium Chloride 0.9% 100 ML IVPB SCH (15:32)
--- NOTE | 2019-08-30 16:40 | PRG ---
DATE OF SERVICE: 08/30/2019 SUBJECTIVE: Vasiliy Chavez is doing well today. Arrangements were made for outpatient antibiotics. Overall, his leg looks better, but still inflamed, still reddened with chronic inflammatory changes. It is distiller, but less so. Doing well. Has a PICC line in place. PLAN: Outpatient antibiotics have been arranged by Dr. Samuels. Leg is without fluctuance or any indication for surgical drainage. Job ID: [id number]
[2019-08-31 14:11] LABS: Alpha-1-Antitrypsin 208 mg/dL (90-200); Smooth Muscle Total ABS 15 Units (0-19)
== END 2019-08-30 17:50 | disposition home or self-care (01) | DRG 603 ==
LOC: SURG B 12:37
PROVIDERS: ADMIT Specialist; ATTEND Specialist
PROC: 0H9LXZZ Drainage of Left Lower Leg Skin, External Approach (ICD-10-PCS; principal; 2019-08-22)
PROC: 02HV33Z Insertion of Infusion Device into Superior Vena Cava, Percutaneous Approach (ICD-10-PCS; 2019-08-29)
PROC: B548ZZA Ultrasonography of Superior Vena Cava, Guidance (ICD-10-PCS; 2019-08-29)
PROC: B5181ZA Fluoroscopy of Superior Vena Cava using Low Osmolar Contrast, Guidance (ICD-10-PCS; 2019-08-29)
DX: L03.116 Cellulitis of left lower limb (principal); K76.6 Portal hypertension; L02.416 Cutaneous abscess of left lower limb; Z88.0 Allergy status to penicillin; D69.6 Thrombocytopenia, unspecified; Z79.899 Other long term (current) drug therapy; Z98.890 Other specified postprocedural states; K74.60 Unspecified cirrhosis of liver; R94.5 Abnormal results of liver function studies; R16.1 Splenomegaly, not elsewhere classified
CPT/HCPCS: 36415; 36416; 36569; 76700; 80053; 80202; 81256; 82103; 82104; 82105; 82390; 82728; 83036; 83516; 83540; 83550; 85025; 85610; 86038; 86225; 86706; 86803; 87070; 87077; 87186; 87205; 87340; 87389; C1751; J0692; J0696; J1644; J1650; J2001; J2270; J3370; J3490; J7050

== ENCOUNTER 2019-09-15 14:42 | Inpatient (IN) | payer OTHER, SELFPAY ==
[2019-09-15 16:40] LABS: #Basophils 0.1 thou/uL (0.0-0.2); #Eosinphils 0.2 thou/uL (0.0-0.7); #Lymphocytes 1.6 thou/uL (1.20-3.40); #Monocytes 0.4 thou/uL (0.11-0.59); #Neutrophils 2.2 thou/uL (1.40-6.50); %Basophils 1.2 % (0.0-1.0); %Eosinophils 4.6 % (0.0-10.0); %Monocytes 8.2 % (0.0-10.0); %Neutrophils 49.9 % (42.0-75.0); Hemoglobin 14.5 g/dL (14.0-18.0); Mean Corpuscular HGB CONC 34.6 g/dL (32.0-36.0); Mean Corpuscular Hemoglobin 34.8 pg (27.0-31.0); Mean Platelet Volume 9.2 fL (7.4-10.4); Platelet Count 56 thou/uL (130-400); RBC Distribution Width 12.9 % (11.5-14.5); Red Blood Cell (RBC) Count 4.16 mill/uL (4.70-6.10); White Blood Cell (WBC) Count 4.3 thou/uL (4.8-10.8)
[2019-09-15 17:02] LABS: ALT (SGPT) 36 U/L (8-55); AST (SGOT) 49 U/L (5-34); Albumin 3.3 g/dL (3.5-5.0); Alkaline Phosphatase 205 U/L (40-110); Anion Gap 11 mmol/L (10-20); BUN (Urea Nitrogen) 5 mg/dL (8.9-20.6); Bilirubin, Total 1.4 mg/dL (0.2-1.2); CK (CPK) 84 U/L (30-200); Calc. Creatinine Clearance 0 mL/min (70-130); Calcium 8.7 mg/dL (7.8-10.44); Carbon Dioxide 23 mmol/L (22-29); Chloride 106 mmol/L (98-107); Estimated GFR-MDRD Greater than 90; Glucose 95 mg/dL (70-105); Potassium 3.8 mmol/L (3.5-5.1); Protein, Total 7.3 g/dL (6.0-8.3); Sodium 136 mmol/L (136-145)
[2019-09-15] MEDS ORDERED: Piperacillin/Tazobactam 3.375 GM VIAL ONE (18:01)
[2019-09-15] MEDS ORDERED: Ondansetron ODT 4 MG TAB SL PRN (19:50)
[2019-09-15] MEDS ORDERED: Acetaminophen 325 MG TAB PO PRN (19:50)
[2019-09-15] MEDS ORDERED: Ondansetron PF 4 MG/2 ML Vial IVP PRN (19:50)
[2019-09-15 21:25] VITALS: BMI 35.2
--- NOTE | 2019-09-16 10:22 | CON ---
DATE OF CONSULTATION: CHIEF COMPLAINT: Left leg infection. HISTORY OF PRESENT ILLNESS: This is a 39-year-old male, who sustained a fall in the oil [place] on August 17, hit the back part of his lower leg on a pipe. He developed cellulitis that subsequently had an I and D on the 22 of August that grew Staph aureus. X-ray showed no knee effusion. On the , he had an ultrasound that was negative for DVT. On the , he had an MRI that showed diffuse stranding and fluid with possible myositis and fasciitis. He was found to have elevated LFTs and a low platelet count. He was diagnosed to have cirrhosis with portal hypertension. He says that he is being treated with a PICC line and IV antibiotics as an outpatient with Dr. Samuels. Dr. Samuels has noticed a new area of swelling below this area. This started draining seropurulent fluid and sent to the hospital for I and D. He had breakfast this morning. 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 PAST SURGICAL HISTORY: He has had back surgery and I and D. SOCIAL HISTORY: He drinks alcohol daily. No tobacco. He has a live-in girlfriend. ALLERGIES: HE HAS AN ALLERGY TO PENICILLIN. MEDICATIONS: He has just the IV antibiotics. FAMILY HISTORY: Diabetes. PHYSICAL EXAMINATION: VITAL SIGNS: Temperature 98.2, pulse 73, and blood pressure 123/69. GENERAL: Well-developed, well-nourished male, in no apparent distress. HEENT: Unremarkable. LUNGS: Clear. HEART: Regular rate and rhythm. ABDOMEN: Soft, nondistended, and nontender. EXTREMITIES: He is ambulating well. He has full range of motion of the knee. He has some soft tissue swelling and edema of the left isidro and anterior lower leg. There are 3 sinus tracts starting about 4 cm from the base of the patella in the midline distally. They are draining seropurulent fluid. There is soft tissue swelling that is more focal inferior to this area. LABORATORY DATA: His white count is 4.3, H and H are 14 and 41, and platelet count of 56,000. His INR is 1.3, PT of 16. His hepatitis panel was negative. His T-bili is 1.4, AST of 49, and alkaline phosphatase of 205. ASSESSMENT: 1. Abscess and cellulitis, inadequately drained. 2. Thrombocytopenia and cirrhosis at higher risks for more advanced surgery, but he needs a more thorough surgery. PLAN: N.p.o. after midnight. I and D of this area with irrigation with the pulse document manager, will need wound VAC. Job ID: [id number]
--- NOTE | 2019-09-16 12:50 | PDOC.HHP ---
Hospitalist HPI - History of Present Illness Left leg cellulitis History of Present Illness: He fell about one month ago, sustained some skin erosion which was later complicated by cellulitis for which he was in the hospital. he was on outpatient antibiotics with no improvement...was admitted for abscess along with cellulitis.. He has cirrhosis of the liver due to ETOH abuse. Hospitalist ROS - Review of Systems Constitutional: denies: fever, chills, sweats, weakness, malaise, other Eyes: denies: pain, vision change, conjunctivae inflammation, eyelid inflammation, redness, other ENT: denies: ear pain, ear discharge, nose pain, nose discharge, nose congestion , mouth pain, mouth swelling, throat pain, throat swelling, other Respiratory: denies: cough, dry, shortness of breath, hemoptysis, SOB with excertion, pleuritic pain, sputum, wheezing, other Cardiovascular: denies: chest pain, palpitations, orthopnea, paroxysmal noc. dyspnea, edema, light headedness, other Gastrointestinal: denies: nausea, vomiting, abdominal pain, diarrhea, constipation, melena, hematochezia, other Genitourinary: denies: dysuria, frequency, incontinence, hematuria, retention, other Musculoskeletal: reports: other (Tenderness and drainage is upper half of tibial /fibular area...) Skin: reports: other (As mentioned above..) Neurological: denies: weakness, numbness, incoordination, change in speech, confusion, seizures, other - Medication Medications: Active Medications Generic Name Dose Route Start Last Admin Trade Name Freq PRN Reason Stop Dose Admin Sodium Chloride 10 ml 09/15/19 21:00 09/15/19 20:59 Flush - Normal Saline IVF 10 ml Q12HR SUMMER Administration Hospitalist History - Past Medical History Source: patient Cardiac: denies: no pertinent history, AFIB, CAD, CHF, HTN, AR, Syncope, Hyperlipidemia, Mitral valve stenosis, Aortic stenosis, Valve insufficiency, Pulmonary hypertension, Other Pulmonary: denies: no pertinent history, angina, asthma, bronchitis, CVA/TIA/ stroke, congestive heart failure, COPD, deep vein thrombosis, emphysema, heart attack, high cholesterol, HIV/AIDS, hypertension, lung disease, pneumonia, previously intubated, pulmonary embolism, Other MOLD CLOSER: denies: no pertinent history, Carpal Tunnel Syndrome, CVA, Dementia, Migraine, Peripheral neuropathy, Seizure, TIA, Vertigo, Other Heme/Onc: reports: Other. denies: no pertinent history, Anemia NOS, B12 deficiency, Cancer, Hemochromatosis, Iron deficiency anemia, Sickle cell disease , Sickle cell trait Hepatobiliary: reports: Cirrhosis (Due to ETOH abuse.) - Past Surgical History Past Surgical History: reports: Other (Lower back laminectomy..) - Family History Family History: reports: no pertinent history - Social History Smoking Status: Never smoker Alcohol: reports: Heavy Drugs: denies: none, cocaine, heroine, marijuana, methamphetamine, Other - Exam Eye: PERRL, anicteric sclera ENT: normocephalic atraumatic, no oropharyngeal lesions, moist mucosa Neck: supple, symmetric, no JVD, no thyromegaly, no lymphadenopathy, no carotid bruit Heart: RRR, no murmur, no gallops Respiratory: CTAB Gastrointestinal: soft, non-tender, non-distended, normal bowel sounds, no palpable masses, no hepatomegaly Extremities: no cyanosis, no edema Skin - other findings: Left leg abscess/cellulitis Neurological: cranial nerve grossly intact, no focal deficits Musculoskeletal: normal tone, normal strength Psychiatric: normal affect, A&O x 3 Hospitalist Results - Labs Result Diagrams: 09/15/19 16:09 09/15/19 16:09 Lab results: WBC 4.3 thou/uL (4.8-10.8) L 09/15/19 16:09 Hgb 14.5 g/dL (14.0-18.0) 09/15/19 16:09 Hct 41.9 % (42.0-52.0) L 09/15/19 16:09 MCV 101.0 fL (78.0-98.0) H 09/15/19 16:09 Plt Count 56 thou/uL (130-400) L 09/15/19 16:09 Neutrophils % 49.9 % (42.0-75.0) 09/15/19 16:09 Sodium 136 mmol/L (136-145) 09/15/19 16:09 Potassium 3.8 mmol/L (3.5-5.1) 09/15/19 16:09 Chloride 106 mmol/L (98-107) 09/15/19 16:09 Carbon Dioxide 23 mmol/L (22-29) 09/15/19 16:09 BUN 5 mg/dL (8.9-20.6) L 09/15/19 16:09 Creatinine 0.73 mg/dL (0.7-1.3) 09/15/19 16:09 Glucose 95 mg/dL (70-105) 09/15/19 16:09 Lactic Acid 1.0 mmol/L (0.5-2.2) 09/15/19 16:09 Calcium 8.7 mg/dL (7.8-10.44) 09/15/19 16:09 Total Bilirubin 1.4 mg/dL (0.2-1.2) H 09/15/19 16:09 AST 49 U/L (5-34) H 09/15/19 16:09 ALT 36 U/L (8-55) 09/15/19 16:09 Alkaline Phosphatase 205 U/L (40-110) H 09/15/19 16:09 Creatine Kinase 84 U/L (30-200) 09/15/19 16:09 Serum Total Protein 7.3 g/dL (6.0-8.3) 09/15/19 16:09 Albumin 3.3 g/dL (3.5-5.0) L 09/15/19 16:09 Hospitalist H&P A/P - Problem (1) Abscess of leg, left Code(s): L02.416 - CUTANEOUS ABSCESS OF LEFT LOWER LIMB Status: Acute Assessment and Plan: On antibiotics.. General surgery consulted.. (2) Cirrhosis of liver Code(s): K74.60 - UNSPECIFIED CIRRHOSIS OF LIVER Status: Acute Assessment and Plan: Due to ETOH abuse. - Plan Plan: As above. For I&D
--- NOTE | 2019-09-16 18:28 | PRG ---
DATE OF SERVICE: 09/16/2019 SUBJECTIVE: Mr. Chavez readmitted after I re-evaluated him downstairs in the infusion area and saw that there was a clear-cut abscess formation which was quite extensive along the anterior aspect of his left lower extremity. He has been admitted, and Dr. Aguilar plus Dr. Covington are planning intervention tomorrow. Otherwise, he feels okay. He has no headaches. No shortness of breath, abdominal pain, or diarrhea. No genitourinary symptoms. OBJECTIVE: VITAL SIGNS: His vital signs are normal. GENERAL: He is in no distress, oriented. LUNGS: Clear. HEART: S1 and S2, regular rate. ABDOMEN: Soft, not distended or tender. EXTREMITIES: Left leg with area of fluctuance in 2/3 sinus tracts with drainage. Staphylococcus aureus retrieved from the abscess, which is Methicillin-sensitive strain. ASSESSMENT AND DISCUSSION: Abscess at infrapatellar region extending towards the mid and lower segments of the anterior left leg associated with chronic liver disease, pending surgical i+d. Evidence of cirrhosis of unknown etiology at this point in time. The patient will be transitioned to cefazolin in view of the susceptibilities of the organism and surgical procedure. Subsequently, he will need a workup for his chronic liver disease as it does not appear to be autoimmune hepatitis or chronic viral hepatitis, serologies are negative. Possibility of steatohepatitis or another form of chronic liver disease with cirrhosis, and he probably will need a liver biopsy. Job ID: [id number] MTDD
[2019-09-16] MEDS ORDERED: FLU VACC QS2019-20(6MOS UP)/PF 60 MCG/0.5 ML SYRINGE IM ONE (21:00)
[2019-09-16] MEDS ORDERED: Vancomycin HCl 1 GM in Premix Bag 1 BAG IVPB SCH (21:00)
--- NOTE | 2019-09-16 21:05 | CON ---
DATE OF CONSULTATION: 09/16/2019 HISTORY OF PRESENT ILLNESS: Mr. 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 He had an irrigation and debridement on August 22, where a small incision was made on the anterior aspect of the proximal left leg. He grew out Staph aureus. X-rays showed no involvement of the left knee joint. On August 25, the patient had an MRI, which showed diffuse stranding and fluid with possible myositis and fasciitis. He has been treated with IV antibiotics per Dr. Samuels, but the patient continues to have 3 draining wounds on the anterior aspect of the proximal leg, 1 in the proximal leg and 2 in the mid leg. PAST MEDICAL HISTORY: Medical illnesses: Cirrhosis secondary to alcohol. PAST SURGICAL HISTORY: Above-mentioned I and D of the left leg and also back surgery. ALLERGIES: TO PENICILLIN. PHYSICAL EXAMINATION: VITAL SIGNS: The patient has been afebrile. Vital signs have been stable. EXTREMITIES: The left leg shows a 1.5- to 2-cm open wound on the anterior proximal aspect of the left leg just lateral to the tibial crest and 2 small draining wounds on the anterior aspect of the mid leg. There is swelling and erythema over the skin that extends from the most proximal open wound to the distal wound. There is some seropurulent drainage. IMPRESSION: Abscess, cellulitis, and possible fasciitis of the left leg. PLAN: I talked with Dr. Gregory Aguilar and we will plan on performing more extensive irrigation and debridement of the left leg tomorrow. The patient's questions were answered and agreed to the procedure. Job ID: [id number]
[2019-09-16] MEDS: CEFAZOLIN 2 GM in Premix Bag 1 BAG IVPB SCH (22:02)
[2019-09-17] MEDS: CEFAZOLIN 2 GM in Premix Bag 1 BAG IVPB SCH ×3 (06:01→21:49)
[2019-09-17] MEDS ORDERED: Midazolam HCl 2 mg/2 ml Vial ONE (07:02)
[2019-09-17] MEDS ORDERED: Fentanyl 100 MCG/2 ML VIAL ONE ×3 (07:02→09:55)
[2019-09-17] MEDS ORDERED: Lidocaine 2% Jelly 5 ML TUBE ONE (07:02)
[2019-09-17] MEDS ORDERED: Clindamycin/D5W 600 mg/50 ml Premix Bag ONE (08:07)
[2019-09-17] MEDS ORDERED: Ondansetron PF 4 MG/2 ML Vial ONE (08:20)
[2019-09-17] MEDS ORDERED: PROPOFOL 200 MG/20 ML VIAL ONE (08:20)
[2019-09-17] MEDS ORDERED: Lidocaine 1% PF 5 ML VIAL ONE (08:20)
[2019-09-17] MEDS ORDERED: Dexamethasone 20 MG/5 ML VIAL ONE (08:20)
[2019-09-17] MEDS ORDERED: Promethazine HCl 25 MG/ML VIAL SLOW IVP PRN (09:10)
[2019-09-17] MEDS ORDERED: Promethazine HCl 25 MG/ML VIAL IM PRN (09:10)
[2019-09-17] MEDS ORDERED: Ondansetron HCl/PF 4 MG/2 ML Vial IVP PRN (09:10)
[2019-09-17] MEDS ORDERED: Ondansetron PF 4 MG/2 ML Vial IVP PRN (09:26)
--- NOTE | 2019-09-17 10:57 | PDOC.HOSPP ---
- Subjective Encounter Date: 09/17/19 Encounter Time: 09:40 Subjective: Sedated, s/p I&D - Objective Vital Signs & Weight: Weight Weight 238 lb 8.642 oz I&O: 09/16/19 09/17/19 09/18/19 06:59 06:59 06:59 Intake Total 350 1095 Balance 350 1095 Result Diagrams: 09/15/19 16:09 09/15/19 16:09 Hospitalist ROS - Medication Medications: Active Medications Generic Name Dose Route Start Last Admin Trade Name Freq PRN Reason Stop Dose Admin Cefazolin Sodium/Dextrose 2 gm 50 mls @ 100 mls/hr 09/16/19 22:00 09/17/19 06 :01 / Device IVPB 50 mls Q8HR SUMMER Administration Sodium Chloride 10 ml 09/15/19 21:00 09/16/19 19:56 Flush - Normal Saline IVF 10 ml Q12HR SUMMER Administration - Exam Neck: no JVD Heart: RRR Respiratory: CTAB Gastrointestinal: soft Extremities: no edema Extremities - other findings: s/p I&D of left leg.. Hosp A/P (1) Abscess of leg, left Code(s): L02.416 - CUTANEOUS ABSCESS OF LEFT LOWER LIMB Status: Acute Plan: With associated Faciiais, s/p I&D (2) Cirrhosis of liver Code(s): K74.60 - UNSPECIFIED CIRRHOSIS OF LIVER Status: Acute - Plan Continue antibiotics... f/u with general surgery
[2019-09-17] MEDS: Morphine 4 MG/ML VIAL SLOW IVP PRN (14:15)
[2019-09-18] MEDS: CEFAZOLIN 2 GM in Premix Bag 1 BAG IVPB SCH ×3 (05:45→22:03)
--- NOTE | 2019-09-18 09:57 | PRG ---
DATE OF SERVICE: 09/18/2019 SUBJECTIVE: The patient is doing well. Pain is better. They tried to put a VAC on yesterday, but evidently it was oozing too much blood, so they just packed it again. They are going to try again today. OBJECTIVE: VITAL SIGNS: On examination, his temperature is 98.4 pulse 73, blood pressure 152/71. GENERAL: He looks good. EXTREMITIES: There is very minimal bleeding on the dressing. It looks fairly dry. He has good palpable pulses. He denies any kind of numbness or tingling on his foot. ASSESSMENT: Necrotizing fasciitis of the left lower leg, improved. PLAN: Wound care. He will probably need to be set up with outpatient wound care because he will need this wound VAC changed 3 times a week, but he lives here locally. Job ID: [id number]
[2019-09-18] MEDS: Morphine 4 MG/ML VIAL SLOW IVP PRN (11:56)
--- NOTE | 2019-09-18 12:36 | OP ---
DATE OF PROCEDURE: 09/17/2019 PREOPERATIVE DIAGNOSIS: Abscess and cellulitis of the left lower leg. POSTOPERATIVE DIAGNOSIS: Necrotizing fasciitis. MICROBIOLOGY LAB ANALYST: Kyle Covington MD. PROCEDURE PERFORMED: Incision, drainage, and debridement of necrotizing fasciitis and abscess of left lower leg. 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 He had a limited I and D on the 22 of August which grew Staph. Over the last month, he has had a PICC line and has been on IV antibiotics and he is getting more and more little sinus tracts poking up along his isidro. FINDINGS: Extensive necrotizing fasciitis over the tibia and the fascia of the tibia had to be debrided off and both anterior compartments. It was an 18 cm skin incision. DESCRIPTION OF PROCEDURE: After informed consent was obtained, the patient was taken to the operating room. He was given general endotracheal anesthesia and placed in supine position. His left leg was prepped and draped in usual fashion. A longitudinal incision along the tibia was performed to connect all the fistulous tracts, wound up being about 18 cm from just at the bottom of the patella tendon to the lower tibia. The subcutaneous fat was necrotic and saponification had occurred. Also, the fascia was necrotic as well. This necrotic tissue was sharply debrided with [place] scissors and electrocautery and knife extensively undermining the area to remove the necrotic tissue. Hemostasis was achieved utilizing electrocautery. Then, the cultures had also been obtained during surgery. The pulse customer services supervisor was used with 6 L of saline. Hemostasis achieved with electrocautery. The patient has very low platelet count due to cirrhosis, so some Surgicel was then placed upon the exposed muscle and a sterile bandage applied. The patient tolerated the procedure well, transferred to Recovery in good condition. Sponge and needle count verified correct x2. Job ID: [id number]
--- NOTE | 2019-09-18 13:07 | PDOC.HOSPP ---
- Subjective Encounter Date: 09/18/19 Encounter Time: 13:04 Subjective: no fever,chills - Objective Vital Signs & Weight: Vital Signs (12 hours) Temp Pulse Resp BP Pulse Ox 09/18/19 08:00 97 09/18/19 07:43 98.4 F 73 16 152/71 H 97 Weight Admit Weight 238 lb 8.642 oz Weight 238 lb 8.642 oz I&O: 09/17/19 09/18/19 09/19/19 06:59 06:59 06:59 Intake Total 1095 1640 240 Balance 1095 1640 240 Result Diagrams: 09/15/19 16:09 09/15/19 16:09 Hospitalist ROS - Medication Medications: Active Medications Generic Name Dose Route Start Last Admin Trade Name Freq PRN Reason Stop Dose Admin Cefazolin Sodium/Dextrose 2 gm 50 mls @ 100 mls/hr 09/16/19 22:00 09/18/19 05 :45 / Device IVPB 50 mls Q8HR SUMMER Administration Morphine Sulfate 4 mg 09/17/19 09:25 09/18/19 11:56 Morphine SLOW IVP 4 mg Q4H PRN Administration Severe Pain (7-10) Sodium Chloride 10 ml 09/15/19 21:00 09/18/19 11:57 Flush - Normal Saline IVF 10 ml Q12HR SUMMER Administration - Exam General Appearance: awake alert Neck: no JVD Heart: RRR, no murmur Respiratory: CTAB Gastrointestinal: soft, normal bowel sounds Gastrointestinal - other findings: bandaged left calf Hosp A/P (1) Necrotizing fasciitis of lower leg Code(s): M72.6 - NECROTIZING FASCIITIS Status: Acute (2) Liver cirrhosis, alcoholic Code(s): K70.30 - ALCOHOLIC CIRRHOSIS OF LIVER WITHOUT ASCITES Status: Acute (3) Thrombocytopenia Code(s): D69.6 - THROMBOCYTOPENIA, UNSPECIFIED Status: Acute - Plan iv antibx wound care eventual wound vac
[2019-09-18] MEDS: Lidocaine 4% Topical Sol 50 ML BOT TOP SCH (14:28)
--- NOTE | 2019-09-18 19:30 | PRG ---
DATE OF SERVICE: 09/18/2019 SUBJECTIVE: The patient had debridement by Dr. Aguilar, and he did find a quite extensive area of inflammatory changes involving all the way to the fascia with evidence of necrosis. It was a quite extensive process. The pulse center consultant was used for washout, and sterile bandage was applied. He denies any respiratory symptoms. No abdominal pain. No genitourinary symptoms. OBJECTIVE: VITAL SIGNS: He has been afebrile. LUNGS: Clear. HEART: S1 and S2. Regular rate. ABDOMEN: Soft. The wound showed the elliptical incision with exposed areas of fascia and muscle, that have been debrided. It looks pretty healthy at this point in time. LABORATORY DATA: The white cell count is at 4.3 from 2 days ago. It has not been repeated since. Creatinine 0.73. Repeat cultures thus far, negative. Gram stain did not show any organisms. ASSESSMENT AND DISCUSSION: Abscess, infrapatellar region extending towards the mid and lower segments, anterior leg with evidence of saponification and necrosis of the fascia. This was followed for a burned-out case of necrotizing fasciitis limited to the areas of involvement. He will continue with the wound care and probably be not going to need much more antimicrobial therapy or may be able to be transitioned to oral antimicrobials and the continuation of wound care in the outpatient setting. Job ID: [id number]
[2019-09-18] MEDS: HYDROcodone/Acetaminophen 10/325 mg Tablet PO PRN (22:51)
[2019-09-19] MEDS: CEFAZOLIN 2 GM in Premix Bag 1 BAG IVPB SCH ×3 (05:41→20:37)
--- NOTE | 2019-09-19 09:45 | PRG ---
DATE OF SERVICE: 09/19/2019 SUBJECTIVE: The patient says he feels a lot better, really no significant pain. He has a wound VAC applied. OBJECTIVE: VITAL SIGNS: His temperature is 97.9, pulse 62, blood pressure 111/71. Really no recorded output from the wound VAC. GENERAL: On examination he looks good. EXTREMITIES: He has mild pedal edema. Good pulses. NEUROLOGIC: Normal neurologic exam. ASSESSMENT: Doing well. PLAN: Home wound VAC and home wound care. Discharge when that is arranged. Job ID: [id number]
[2019-09-19] MEDS: HYDROcodone/Acetaminophen 10/325 mg Tablet PO PRN (09:56)
--- NOTE | 2019-09-19 10:18 | PDOC.HOSPP ---
- Subjective Encounter Date: 09/19/19 Encounter Time: 10:16 Subjective: no complaints - Objective Vital Signs & Weight: Vital Signs (12 hours) Temp Pulse Resp BP Pulse Ox 09/19/19 07:43 97.9 F 62 18 111/71 98 Weight Admit Weight 238 lb 8.642 oz Weight 238 lb 8.642 oz I&O: 09/18/19 09/19/19 09/20/19 06:59 06:59 06:59 Intake Total 1640 1420 Balance 1640 1420 Result Diagrams: 09/15/19 16:09 09/15/19 16:09 Hospitalist ROS - Medication Medications: Active Medications Generic Name Dose Route Start Last Admin Trade Name Freq PRN Reason Stop Dose Admin Hydrocodone Bitart/Acetaminophen 1 tab 09/17/19 09:25 09/19/19 09:56 [place] 10/325 PO 1 tab Q4H PRN Administration Mild-Moderate Pain (1-5) Hydrocodone Bitart/Acetaminophen 2 tab 09/17/19 09:25 09/18/19 22:51 [place] 10/325 PO 2 tab Q4H PRN Administration Moderate Pain (4-6) Cefazolin Sodium/Dextrose 2 gm 50 mls @ 100 mls/hr 09/16/19 22:00 09/19/19 05 :41 / Device IVPB 50 mls Q8HR SUMMER Administration Lidocaine HCl 0 ml 09/18/19 12:08 09/18/19 14:28 Xylocaine 4% Topical Nidhi TOP 20 ml MoWeFr SUMMER Administration Morphine Sulfate 4 mg 09/17/19 09:25 09/18/19 11:56 Morphine SLOW IVP 4 mg Q4H PRN Administration Severe Pain (7-10) Sodium Chloride 10 ml 09/15/19 21:00 09/19/19 10:00 Flush - Normal Saline IVF 10 ml Q12HR SUMMER Administration Sodium Chloride 10 ml 09/15/19 19:50 09/18/19 14:39 Flush - Normal Saline IVF 10 ml PRN PRN Administration Saline Flush - Exam Neck: no JVD Heart: RRR, no murmur Respiratory: CTAB Gastrointestinal: soft, normal bowel sounds Extremities - other findings: wound vac L leg Hosp A/P (1) Necrotizing fasciitis of lower leg Code(s): M72.6 - NECROTIZING FASCIITIS Status: Acute (2) Liver cirrhosis, alcoholic Code(s): K70.30 - ALCOHOLIC CIRRHOSIS OF LIVER WITHOUT ASCITES Status: Acute (3) Thrombocytopenia Code(s): D69.6 - THROMBOCYTOPENIA, UNSPECIFIED Status: Acute - Plan iv antibx DC on po meds when wound vac and outpt wound care arranged
[2019-09-20] MEDS: CEFAZOLIN 2 GM in Premix Bag 1 BAG IVPB SCH ×3 (05:43→21:13)
[2019-09-20] MEDS: Morphine 4 MG/ML VIAL SLOW IVP PRN (11:41)
[2019-09-20] MEDS: Lidocaine 4% Topical Sol 50 ML BOT TOP SCH (11:47)
--- NOTE | 2019-09-20 13:05 | PDOC.HOSPP ---
- Subjective Encounter Date: 09/20/19 Encounter Time: 13:04 Subjective: no complaints - Objective Vital Signs & Weight: Vital Signs (12 hours) Temp Pulse Resp BP Pulse Ox 09/20/19 08:00 96 09/20/19 07:46 98.2 F 62 18 128/76 96 Weight Admit Weight 238 lb 8.642 oz Weight 238 lb 8.642 oz I&O: 09/19/19 09/20/19 09/21/19 06:59 06:59 06:59 Intake Total 1420 1250 Balance 1420 1250 Result Diagrams: 09/15/19 16:09 09/15/19 16:09 Hospitalist ROS - Medication Medications: Active Medications Generic Name Dose Route Start Last Admin Trade Name Freq PRN Reason Stop Dose Admin Hydrocodone Bitart/Acetaminophen 1 tab 09/17/19 09:25 09/19/19 09:56 [place] 10/325 PO 1 tab Q4H PRN Administration Mild-Moderate Pain (1-5) Hydrocodone Bitart/Acetaminophen 2 tab 09/17/19 09:25 09/18/19 22:51 [place] 10/325 PO 2 tab Q4H PRN Administration Moderate Pain (4-6) Cefazolin Sodium/Dextrose 2 gm 50 mls @ 100 mls/hr 09/16/19 22:00 09/20/19 05 :43 / Device IVPB 50 mls Q8HR SUMMER Administration Lidocaine HCl 0 ml 09/18/19 12:08 09/20/19 11:47 Xylocaine 4% Topical Nidhi TOP 1 ml MoWeFr SUMMER Administration Morphine Sulfate 4 mg 09/17/19 09:25 09/20/19 11:41 Morphine SLOW IVP 4 mg Q4H PRN Administration Severe Pain (7-10) Sodium Chloride 10 ml 09/15/19 21:00 09/20/19 11:47 Flush - Normal Saline IVF 10 ml Q12HR SUMMER Administration Sodium Chloride 10 ml 09/15/19 19:50 09/19/19 14:19 Flush - Normal Saline IVF 10 ml PRN PRN Administration Saline Flush - Exam Neck: no JVD Heart: no murmur Respiratory: CTAB Gastrointestinal: soft, normal bowel sounds Extremities: no edema Extremities - other findings: wound vac Hosp A/P (1) Necrotizing fasciitis of lower leg Code(s): M72.6 - NECROTIZING FASCIITIS Status: Acute (2) Liver cirrhosis, alcoholic Code(s): K70.30 - ALCOHOLIC CIRRHOSIS OF LIVER WITHOUT ASCITES Status: Acute (3) Thrombocytopenia Code(s): D69.6 - THROMBOCYTOPENIA, UNSPECIFIED Status: Acute - Plan iv antibx DC on po meds when wound vac and outpt wound care arranged
[2019-09-20] MEDS: HYDROcodone/Acetaminophen 10/325 mg Tablet PO PRN (13:25)
[2019-09-21] MEDS: CEFAZOLIN 2 GM in Premix Bag 1 BAG IVPB SCH ×3 (05:48→21:18)
--- NOTE | 2019-09-21 14:53 | PDOC.HOSPP ---
- Subjective Encounter Date: 09/21/19 Encounter Time: 14:51 Subjective: fine - Objective Vital Signs & Weight: Vital Signs (12 hours) Temp Pulse Resp BP Pulse Ox 09/21/19 08:00 97 09/21/19 07:41 97.6 F 62 20 117/73 97 Weight Admit Weight 238 lb 8.642 oz Weight 238 lb 8.642 oz I&O: 09/20/19 09/21/19 09/22/19 06:59 06:59 06:59 Intake Total 1250 1050 Balance 1250 1050 Result Diagrams: 09/15/19 16:09 09/15/19 16:09 Hospitalist ROS - Medication Medications: Active Medications Generic Name Dose Route Start Last Admin Trade Name Freq PRN Reason Stop Dose Admin Hydrocodone Bitart/Acetaminophen 1 tab 09/17/19 09:25 09/19/19 09:56 [place] 10/325 PO 1 tab Q4H PRN Administration Mild-Moderate Pain (1-5) Hydrocodone Bitart/Acetaminophen 2 tab 09/17/19 09:25 09/20/19 13:25 [place] 10/325 PO 2 tab Q4H PRN Administration Moderate Pain (4-6) Cefazolin Sodium/Dextrose 2 gm 50 mls @ 100 mls/hr 09/16/19 22:00 09/21/19 14 :35 / Device IVPB 50 mls Q8HR SUMMER Administration Lidocaine HCl 0 ml 09/18/19 12:08 09/20/19 11:47 Xylocaine 4% Topical Nidhi TOP 1 ml MoWeFr SUMMER Administration Morphine Sulfate 4 mg 09/17/19 09:25 09/20/19 11:41 Morphine SLOW IVP 4 mg Q4H PRN Administration Severe Pain (7-10) Sodium Chloride 10 ml 09/15/19 21:00 09/21/19 14:36 Flush - Normal Saline IVF 10 ml Q12HR SUMMER Administration Sodium Chloride 10 ml 09/15/19 19:50 09/19/19 14:19 Flush - Normal Saline IVF 10 ml PRN PRN Administration Saline Flush - Exam Neck: no JVD Heart: RRR, no murmur Respiratory: CTAB Gastrointestinal: soft, normal bowel sounds Extremities: no clubbing Hosp A/P (1) Necrotizing fasciitis of lower leg Code(s): M72.6 - NECROTIZING FASCIITIS Status: Acute (2) Liver cirrhosis, alcoholic Code(s): K70.30 - ALCOHOLIC CIRRHOSIS OF LIVER WITHOUT ASCITES Status: Acute (3) Thrombocytopenia Code(s): D69.6 - THROMBOCYTOPENIA, UNSPECIFIED Status: Acute - Plan iv antibx DC on po meds when wound vac and outpt wound care arranged
[2019-09-21] MEDS: HYDROcodone/Acetaminophen 10/325 mg Tablet PO PRN (17:05)
[2019-09-22] MEDS: CEFAZOLIN 2 GM in Premix Bag 1 BAG IVPB SCH ×3 (04:40→21:11)
[2019-09-22] MEDS: Morphine 4 MG/ML VIAL SLOW IVP PRN (11:43)
[2019-09-22] MEDS: Lidocaine 4% Topical Sol 50 ML BOT TOP SCH (13:55)
[2019-09-22] MEDS ORDERED: traMADol HCl 50 MG TAB PO PRN (17:05)
--- NOTE | 2019-09-22 17:08 | PDOC.HOSPP ---
- Subjective Subjective: Seen and examined. Follow-up for lower extremity wound, wound VAC in place. Patient is pending set up about patient wound care and wound VAC. Case management consultation has been placed. Status post debridement. Breathing well on room air. Not using IV or oral pain medication. Patient medically stable for lower level of care. - Objective Vital Signs & Weight: Vital Signs (12 hours) Temp Pulse Resp BP Pulse Ox 09/22/19 08:00 98 09/22/19 07:21 98.2 F 66 18 117/65 98 Weight Admit Weight 238 lb 8.642 oz Weight 238 lb 8.642 oz I&O: 09/21/19 09/22/19 09/23/19 06:59 06:59 06:59 Intake Total 1050 1250 710 Balance 1050 1250 710 Result Diagrams: 09/15/19 16:09 09/15/19 16:09 Hospitalist ROS - Review of Systems All other systems reviewed; all pertinent +/- noted in HPI/Subj - Medication Medications: Active Medications Generic Name Dose Route Start Last Admin Trade Name Freq PRN Reason Stop Dose Admin Hydrocodone Bitart/Acetaminophen 1 tab 09/17/19 09:25 09/19/19 09:56 [place] 10/325 PO 1 tab Q4H PRN Administration Mild-Moderate Pain (1-5) Cefazolin Sodium/Dextrose 2 gm 50 mls @ 100 mls/hr 09/16/19 22:00 09/22/19 15 :32 / Device IVPB 50 mls Q8HR SUMMER Administration Lidocaine HCl 0 ml 09/18/19 12:08 09/22/19 13:55 Xylocaine 4% Topical Nidhi TOP Not Given MoWeFr SUMMER Sodium Chloride 10 ml 09/15/19 21:00 09/22/19 08:18 Flush - Normal Saline IVF 10 ml Q12HR SUMMER Administration Sodium Chloride 10 ml 09/15/19 19:50 09/19/19 14:19 Flush - Normal Saline IVF 10 ml PRN PRN Administration Saline Flush - Exam General Appearance: NAD, awake alert Eye: anicteric sclera ENT: moist mucosa Neck: supple, symmetric, no lymphadenopathy Heart: RRR, no murmur, no gallops, no rubs Respiratory: CTAB, no wheezes, no rales, no ronchi Gastrointestinal: soft, no guarding, no rigidity Extremities: no edema Skin: no lesions, no rashes Neurological: cranial nerve grossly intact, no weakness, no focal deficits Musculoskeletal: normal strength Psychiatric: normal affect, A&O x 3 Hosp A/P (1) Abscess of leg, left Code(s): L02.416 - CUTANEOUS ABSCESS OF LEFT LOWER LIMB Status: Acute (2) Necrotizing fasciitis of lower leg Code(s): M72.6 - NECROTIZING FASCIITIS Status: Acute - Plan Plan: medical unit infectious disease consultation, recommendations appreciated general surgery consultation, recommendations appreciated case management consultation requested, recommendations appreciated status post debridement wound VAC intact needs outpatient wound care/wound VAC set up prior to discharge on IV antibiotics, oral antibiotics on discharge per infectious disease specialist Pain control Progressing well, stable for lower level of care
[2019-09-23] MEDS: CEFAZOLIN 2 GM in Premix Bag 1 BAG IVPB SCH ×3 (05:20→21:09)
--- NOTE | 2019-09-23 13:05 | PDOC.HOSPP ---
- Subjective Subjective: Pain and examined. No acute overnight events. No new complaints. Wound VAC in place. Patient progressing as expected. Walking labs are on the abarca. Waiting for wound VAC/wound care to be set up in the outpatient setting. - Objective Vital Signs & Weight: Vital Signs (12 hours) Temp Pulse Resp BP Pulse Ox 09/23/19 08:00 95 09/23/19 07:34 98.4 F 60 19 107/57 L 95 Weight Admit Weight 238 lb 8.642 oz Weight 238 lb 8.642 oz I&O: 09/22/19 09/23/19 09/24/19 06:59 06:59 06:59 Intake Total 1250 1989 480 Balance 1250 1989 480 Result Diagrams: 09/15/19 16:09 09/15/19 16:09 Hospitalist ROS - Review of Systems All other systems reviewed; all pertinent +/- noted in HPI/Subj - Medication Medications: Active Medications Generic Name Dose Route Start Last Admin Trade Name Freq PRN Reason Stop Dose Admin Hydrocodone Bitart/Acetaminophen 1 tab 09/17/19 09:25 09/19/19 09:56 [place] 10/325 PO 1 tab Q4H PRN Administration Mild-Moderate Pain (1-5) Cefazolin Sodium/Dextrose 2 gm 50 mls @ 100 mls/hr 09/16/19 22:00 09/23/19 05 :20 / Device IVPB 50 mls Q8HR SUMMER Administration Lidocaine HCl 0 ml 09/18/19 12:08 09/22/19 13:55 Xylocaine 4% Topical Nidhi TOP Not Given MoWeFr SUMMER Sodium Chloride 10 ml 09/15/19 21:00 09/23/19 08:31 Flush - Normal Saline IVF 10 ml Q12HR SUMMER Administration Sodium Chloride 10 ml 09/15/19 19:50 09/23/19 05:20 Flush - Normal Saline IVF 10 ml PRN PRN Administration Saline Flush - Exam General Appearance: NAD, awake alert Eye: anicteric sclera ENT: normocephalic atraumatic, moist mucosa Neck: supple, symmetric, no lymphadenopathy Heart: RRR, no murmur, no gallops, no rubs Respiratory: CTAB, no wheezes, no rales Gastrointestinal: soft, non-tender, normal bowel sounds, no palpable masses, no guarding, no rigidity Extremities: no edema Skin: no rashes Skin - other findings: Dressing clean and dry with wound vac in position Neurological: no focal deficits Musculoskeletal: normal strength Psychiatric: normal affect, A&O x 3 Hosp A/P (1) Abscess of leg, left Code(s): L02.416 - CUTANEOUS ABSCESS OF LEFT LOWER LIMB Status: Acute (2) Necrotizing fasciitis of lower leg Code(s): M72.6 - NECROTIZING FASCIITIS Status: Acute - Plan Plan: medical unit infectious disease consultation, recommendations appreciated general surgery consultation, recommendations appreciated case management consultation requested, recommendations appreciated status post debridement wound VAC intact needs outpatient wound care/wound VAC set up prior to discharge on IV antibiotics, oral antibiotics on discharge per infectious disease specialist Pain control No acute overnight events or issues Stable for lower level of care
[2019-09-24] MEDS: CEFAZOLIN 2 GM in Premix Bag 1 BAG IVPB SCH ×3 (05:17→20:53)
--- NOTE | 2019-09-24 15:14 | PDOC.HOSPP ---
- Subjective Subjective: Seen and examined. Clinically improving. No acute it for night events. Pending approval of wound VAC/wound care/ antibiotics. - Objective Vital Signs & Weight: Vital Signs (12 hours) Temp Pulse Resp BP Pulse Ox 09/24/19 08:30 99 09/24/19 08:14 98.4 F 71 18 107/61 99 Weight Admit Weight 238 lb 8.642 oz Weight 238 lb 8.642 oz I&O: 09/23/19 09/24/19 09/25/19 06:59 06:59 06:59 Intake Total 1989 2510 660 Balance 19890 660 Result Diagrams: 09/15/19 16:09 09/15/19 16:09 Hospitalist ROS - Review of Systems All other systems reviewed; all pertinent +/- noted in HPI/Subj - Medication Medications: Active Medications Generic Name Dose Route Start Last Admin Trade Name Freq PRN Reason Stop Dose Admin Hydrocodone Bitart/Acetaminophen 1 tab 09/17/19 09:25 09/19/19 09:56 [place] 10/325 PO 1 tab Q4H PRN Administration Mild-Moderate Pain (1-5) Cefazolin Sodium/Dextrose 2 gm 50 mls @ 100 mls/hr 09/16/19 22:00 09/24/19 13 :36 / Device IVPB 50 mls Q8HR SUMMER Administration Lidocaine HCl 0 ml 09/18/19 12:08 09/22/19 13:55 Xylocaine 4% Topical Nidhi TOP Not Given MoWeFr SUMMER Sodium Chloride 10 ml 09/15/19 21:00 09/24/19 08:43 Flush - Normal Saline IVF 10 ml Q12HR SUMMER Administration Sodium Chloride 10 ml 09/15/19 19:50 09/24/19 05:18 Flush - Normal Saline IVF 10 ml PRN PRN Administration Saline Flush - Exam General Appearance: NAD Eye: PERRL ENT: normocephalic atraumatic, moist mucosa Neck: supple, symmetric, no lymphadenopathy Heart: RRR, no murmur, no gallops Respiratory: CTAB, no wheezes, no rales Gastrointestinal: soft, non-tender, non-distended, normal bowel sounds Extremities: no edema Skin: no lesions, no rashes Neurological: cranial nerve grossly intact, no focal deficits Musculoskeletal: normal strength, no muscle wasting Psychiatric: normal affect, A&O x 3 Hosp A/P (1) Abscess of leg, left Code(s): L02.416 - CUTANEOUS ABSCESS OF LEFT LOWER LIMB Status: Acute (2) Necrotizing fasciitis of lower leg Code(s): M72.6 - NECROTIZING FASCIITIS Status: Acute - Plan Plan: medical unit infectious disease consultation, recommendations appreciated general surgery consultation, recommendations appreciated case management consultation requested, recommendations appreciated status post debridement wound VAC intact needs outpatient wound care/wound VAC set up prior to discharge on IV antibiotics, oral antibiotics on discharge per infectious disease specialist Pain control No acute overnight events or issues Stable for lower level of care
[2019-09-25] MEDS: CEFAZOLIN 2 GM in Premix Bag 1 BAG IVPB SCH ×3 (05:42→21:26)
[2019-09-25] MEDS: Lidocaine 4% Topical Sol 50 ML BOT TOP SCH (13:47)
--- NOTE | 2019-09-25 14:00 | PDOC.HOSPP ---
- Subjective Subjective: Seen and examined. Clinically unchanged. Patient is ambulating with from [facility] and wound VAC around the halls without difficulties. Discuss case with case management who is looking into wound VAC being approved by [employer] versus another type of wound vac. - Objective Vital Signs & Weight: Vital Signs (12 hours) Temp Pulse Resp BP Pulse Ox 09/25/19 07:40 97.8 F 64 20 125/70 98 Weight Admit Weight 238 lb 8.642 oz Weight 238 lb 8.642 oz I&O: 09/24/19 09/25/19 09/26/19 06:59 06:59 06:59 Intake Total 2510 1480 Balance 2510 1480 Result Diagrams: 09/15/19 16:09 09/15/19 16:09 Hospitalist ROS - Review of Systems All other systems reviewed; all pertinent +/- noted in HPI/Subj - Medication Medications: Active Medications Generic Name Dose Route Start Last Admin Trade Name Freq PRN Reason Stop Dose Admin Hydrocodone Bitart/Acetaminophen 1 tab 09/17/19 09:25 09/19/19 09:56 [place] 10/325 PO 1 tab Q4H PRN Administration Mild-Moderate Pain (1-5) Cefazolin Sodium/Dextrose 2 gm 50 mls @ 100 mls/hr 09/16/19 22:00 09/25/19 13 :43 / Device IVPB 50 mls Q8HR SUMMER Administration Lidocaine HCl 0 ml 09/18/19 12:08 09/25/19 13:47 Xylocaine 4% Topical Nidhi TOP Not Given MoWeFr SUMMER Sodium Chloride 10 ml 09/15/19 21:00 09/25/19 07:43 Flush - Normal Saline IVF 10 ml Q12HR SUMMER Administration Sodium Chloride 10 ml 09/15/19 19:50 09/25/19 13:43 Flush - Normal Saline IVF 10 ml PRN PRN Administration Saline Flush - Exam General Appearance: NAD, awake alert Eye: anicteric sclera ENT: normocephalic atraumatic Neck: supple, symmetric, no lymphadenopathy Heart: no murmur, no gallops, no rubs Respiratory: no wheezes, no rales, no ronchi Gastrointestinal: soft, non-tender, non-distended, normal bowel sounds, no guarding, no rigidity Extremities: no edema Extremities - other findings: Wound vac in position with output Skin - other findings: See wound care pictures for details Neurological: cranial nerve grossly intact, no weakness Musculoskeletal: normal tone, normal strength Psychiatric: normal affect, A&O x 3 Hosp A/P (1) Abscess of leg, left Code(s): L02.416 - CUTANEOUS ABSCESS OF LEFT LOWER LIMB Status: Acute (2) Necrotizing fasciitis of lower leg Code(s): M72.6 - NECROTIZING FASCIITIS Status: Acute - Plan Plan: medical unit infectious disease consultation, recommendations appreciated general surgery consultation, recommendations appreciated case management consultation requested, recommendations appreciated status post debridement wound VAC intact needs outpatient wound care/wound VAC set up prior to discharge on IV antibiotics, oral antibiotics on discharge per infectious disease specialist Pain control No acute overnight events or issues Stable for lower level of care
[2019-09-26] MEDS: CEFAZOLIN 2 GM in Premix Bag 1 BAG IVPB SCH ×3 (05:39→21:52)
[2019-09-26] MEDS: HYDROcodone/Acetaminophen 10/325 mg Tablet PO PRN (12:27)
--- NOTE | 2019-09-26 14:41 | PDOC.HOSPP ---
- Subjective Subjective: Seen and examined. Clinically unchanged. Wound back in place. Walking laps around the unit without problems. Patient remains on IV antibiotics while he is hospitalized, transition to oral antibiotics on discharge. Waiting for insurance to approve wound VAC in the outpatient setting. Workers comp. - Objective Vital Signs & Weight: Vital Signs (12 hours) Temp Pulse Resp BP Pulse Ox 09/26/19 08:54 96 09/26/19 07:43 98.0 F 69 16 98/65 98 Weight Admit Weight 238 lb 8.642 oz Weight 238 lb 8.642 oz I&O: 09/25/19 09/26/19 09/27/19 06:59 06:59 06:59 Intake Total 1480 2310 Balance 1480 2310 Result Diagrams: 09/15/19 16:09 09/15/19 16:09 Hospitalist ROS - Review of Systems All other systems reviewed; all pertinent +/- noted in HPI/Subj - Medication Medications: Active Medications Generic Name Dose Route Start Last Admin Trade Name Freq PRN Reason Stop Dose Admin Hydrocodone Bitart/Acetaminophen 1 tab 09/17/19 09:25 09/26/19 12:27 [place] 10/325 PO 1 tab Q4H PRN Administration Mild-Moderate Pain (1-5) Cefazolin Sodium/Dextrose 2 gm 50 mls @ 100 mls/hr 09/16/19 22:00 09/26/19 14 :10 / Device IVPB 50 mls Q8HR SUMMER Administration Lidocaine HCl 0 ml 09/18/19 12:08 09/25/19 13:47 Xylocaine 4% Topical Nidhi TOP Not Given MoWeFr SUMMER Sodium Chloride 10 ml 09/15/19 21:00 09/26/19 08:54 Flush - Normal Saline IVF 10 ml Q12HR SUMMER Administration Sodium Chloride 10 ml 09/15/19 19:50 09/25/19 13:43 Flush - Normal Saline IVF 10 ml PRN PRN Administration Saline Flush - Exam General Appearance: NAD Eye: anicteric sclera ENT: normocephalic atraumatic, moist mucosa Neck: supple Heart: no murmur, no gallops, no rubs Respiratory: CTAB, no wheezes, no rales, no ronchi Gastrointestinal: no guarding, no rigidity Extremities: no edema Skin: no rashes Skin - other findings: Wound vac in position Neurological: cranial nerve grossly intact Musculoskeletal: no muscle wasting Psychiatric: A&O x 3 Hosp A/P (1) Abscess of leg, left Code(s): L02.416 - CUTANEOUS ABSCESS OF LEFT LOWER LIMB Status: Acute (2) Necrotizing fasciitis of lower leg Code(s): M72.6 - NECROTIZING FASCIITIS Status: Acute - Plan Plan: medical unit infectious disease consultation, recommendations appreciated general surgery consultation, recommendations appreciated case management consultation requested, recommendations appreciated status post debridement wound VAC intact needs outpatient wound care/wound VAC set up prior to discharge on IV antibiotics, oral antibiotics on discharge per infectious disease specialist Pain control No acute overnight events or issues Stable for lower level of care
[2019-09-27] MEDS ORDERED: CEFAZOLIN 2 GM in Premix Bag 1 BAG IVPB SCH (06:00)
[2019-09-27] MEDS: CEFAZOLIN 2 GM in Premix Bag 1 BAG IVPB SCH (06:17)
[2019-09-27 08:22] VITALS: BP 125/67
[2019-09-27 12:19] VITALS: TEMP 97.9
--- NOTE | 2019-09-27 23:03 | DIS ---
DATE OF ADMISSION: 09/15/2019 DATE OF DISCHARGE: 09/27/2019 REASON FOR HOSPITALIZATION: Leg wound. SIGNIFICANT FINDINGS: The patient was found to have significant leg wound that required surgical intervention. PROCEDURES PERFORMED AND TREATMENTS RENDERED: The patient went to the operating room on 09/17/[address] Aguilar-please see full operative report for details. The patient tolerated the procedure well without intraoperative complications. The patient diagnosed with necrotizing fasciitis intraoperatively. The patient was seen and evaluated by Infectious Disease specialist to adjust the patient's antibiotics appropriately. The patient was set up with wound care and wound VAC prior to discharge. The patient recommended safe for discharge by all specialists on 09/27/2019, with close followup in the outpatient setting. CONDITION ON DISCHARGE: Stable. SPECIFIC INSTRUCTIONS FOR THE PATIENT/FAMILY: 1. The patient is recommended to complete a full course of oral antibiotics per Infectious Disease specialist. 2. The patient is recommended to follow up with Infectious Disease specialist in the next 1 to 2 weeks. 3. The patient is recommended to follow up with General Surgery in the outpatient clinic in the next 1 to 2 weeks. 4. The patient is recommended to follow up with Wound Care on Wednesday at his outpatient appointment. 5. The patient is recommended to return to acute care hospital immediately if wound is not healing, worsening of leg pain, fever, chills, or any other new symptoms, return to acute care hospital for re-evaluation. DISCHARGE MEDICATIONS: Please see full discharge medication list for details. Antibiotics were selected by Infectious Disease specialist as follows: 1. Keflex 500 mg one tablet p.o. t.i.d. for the next 10 days, #30 tablets. HOSPITAL COURSE: Mr. Chavez is a very pleasant 39-year-old gentleman, who presented to [facility] on 09[facility]-please see full consultation history and physical from admitting hospitalist and consultation note from Dr. Aguilar for full details. As I did not admit this patient, I cannot comment on whether there is a direct correlation between this wound and the patient's working. The patient tells me that this wound did occur in the workplace. However, when I took over his care on 09/22/2019, the patient has already been set up with a plan per his specialist. The patient underwent surgical debridement on 09/17/[address] Aguilar in which he was diagnosed with necrotizing fasciitis. The patient had antibiotics adjusted appropriately by Infectious Disease specialist. The patient was set up with wound VAC. The patient going through [employer], had wound VAC approved on 09/27/2019. The patient was recommended safe for discharge by all specialists with close followup in the outpatient setting. The patient is recommended to have wound VAC changed and dressings changed at his outpatient wound care appointment this Wednesday and he is strictly recommended to keep this appointment. The patient recommended to complete a full course of oral antibiotics, which were selected by Infectious Disease specialist. The patient is recommended to follow up with Infectious Disease specialist and General Surgery in addition to his primary care physician in the next 1 to 2 weeks. I explicitly informed the patient that if any signs or symptoms included but not limited to worsening of leg wound, fever, discharge from wound, worsening of redness of wound, chest pain, shortness of breath, double vision, blurry vision, or any other new symptoms, he is recommended to return to acute care hospital immediately for reevaluation. The patient understands these warning signs and red flags to look for and he tells me that he will return to acute care hospital immediately if any new symptoms or original symptoms occur. The patient discharged on 09/27/2019 in stable condition. Greater than 40 minutes spent coordinating care and discharge process for this patient. Job ID: [id number]
--- NOTE | 2019-09-29 07:58 | PQF ---
[facility] SHIVA Saab JOHN A JR MD [id number] [id number] CLINICAL DOCUMENTATION CLARIFICATION FORM: POST DISCHARGE Addendum to original discharge summary date: ____ Late entry note date: __ DATE:09/29/2019 ATTN: ZIA ALCALA JR, MD Please exercise your independent, professional judgment in responding to the clarification form. Clinical indicators are provided on the bottom of this form for your review Please check appropriate box(s): [ ] Excisional Debridement: [ x] Excised [ ] Cut away [ ] Other: Depth / layer: (deepest layer of debridement): [ x ] Skin[ x ] SubQ Tissue [x ] Fascia [ ] Muscle [ ] Tendon [ ] Bone Appearance of wound: (e.g., down to fresh bleeding tissue, etc.) down to fresh bleeding tissue Margins: (please specify): / x x Instruments used: [ x ] Scissors [x ] Scalpel [ x] Curette [ x] Soft tissue clipper [ ] Other: [ ] Non-excisional Debridement: (Removal by flushing, brushing, chemical, or washing) Depth / layer: (deepest layer of debridement): [ ] Skin[ ] Subcutaneous [ ] Fascia [ ] Muscle [ ] Tendon [ ] Bone [ ] Incision and Drainage only (No Debridement): Depth:[ ] Skin [ ] Subcutaneous [ ] Fascia [ ] Muscle [ ] Tendon [ ] Bone [ ] Escharectomy [ ] Other procedure diagnosis [ ] Unable to determine For continuity of documentation, please document condition throughout progress notes and discharge summary. Thank You. CLINICAL INDICATORS - SIGNS / SYMPTOMS / LABS -The subcutaneous fat was necrotic and saponification had occurred also the fascia was necrotic as well-OP report, 09/17, Valeriy Young Jr, MD -This necrotic tissue was sharply debrided with mejia scissors and electrocautery and knife extensively undermining the are to remove the necrotic tissue-OP report, 09/17, Valeriy Young Jr, MD - Incision along the tibia was performed to connect all the fistulous tracts- OP report, 09/17, Valeriy Young Jr, MD -wound up being about 18cm from just at the bottom of the patella tendon to the lower tibia-OP report, 09/17, Valeriy Young Jr, MD RISK FACTORS -Abscess and cellulitis of the left lower leg -OP report, 09/17, Valeriy Young Jr, MD -Necrotizing fascitis-OP report, 09/17, Valeriy Young Jr, MD TREATMENTS: -The pulse product management specialist was used-OP report, 09/17, Valeriy Young Jr, MD -sterile banded applied-OP report, 09/17, Valeriy Young Jr, MD - Vancomycin.IV-JAN, 09/15 (This form is maintained as a part of the permanent medical record) 2014 [employer]. All Rights Reserved Danita Ibrahim [not provided] [not provided] MTDD
== END 2019-09-27 12:03 | disposition home or self-care (01) | DRG 464 ==
LOC: ERS 14:42 → T4-A 19:38
PROVIDERS: ADMIT Internal Medicine; ATTEND Internal Medicine
PROC: 0JBP0ZZ Excision of Left Lower Leg Subcutaneous Tissue and Fascia, Open Approach (ICD-10-PCS; principal; 2019-09-17)
DX: M72.6 Necrotizing fasciitis (principal); L02.416 Cutaneous abscess of left lower limb; K76.6 Portal hypertension; L03.116 Cellulitis of left lower limb; F10.10 Alcohol abuse, uncomplicated; D69.6 Thrombocytopenia, unspecified; K70.30 Alcoholic cirrhosis of liver without ascites; Z88.0 Allergy status to penicillin; Z91.81 History of falling
CPT/HCPCS: 36415; 80053; 82550; 83605; 85025; 87040; 87070; 87205; 90471; 90686; 96365; 96367; G0008; J0690; J1100; J1956; J2001; J2250; J2270; J2405; J2543; J2704; J3010; J3370; J3490

== ENCOUNTER 2019-09-29 10:49 | Outpatient (CLI) | payer OTHER, SELFPAY ==
[~2019-09-29 10:49] MED LIST: Lidocaine 2% PF 5 ML VIAL ONE; Sodium Chloride 0.9% 15 ML NEB ONE
== END 2019-09-29 10:50 | disposition home or self-care (01) ==
LOC: WCC 10:49
PROVIDERS: ATTEND Family Medicine
DX: S81.802D Unspecified open wound, left lower leg, subsequent encounter (principal)
CPT/HCPCS: 97605; A4218; J2001

== ENCOUNTER 2019-10-03 13:12 | Outpatient (CLI) | payer OTHER, SELFPAY ==
[~2019-10-03 13:12] MED LIST changes: -Lidocaine 2% PF 5 ML VIAL ONE
== END 2019-10-03 13:13 | disposition home or self-care (01) ==
LOC: WCC 13:12
PROVIDERS: ATTEND Family Medicine
DX: L03.116 Cellulitis of left lower limb (principal); L02.416 Cutaneous abscess of left lower limb
CPT/HCPCS: 97605; A4218

== ENCOUNTER 2019-10-06 11:37 | Outpatient (CLI) | payer OTHER | END 2019-10-06 11:38 | disposition home or self-care (01) | LOC: WCC 11:37 | PROVIDERS: ATTEND Family Medicine | DX: S81.802D Unspecified open wound, left lower leg, subsequent encounter (principal) | CPT/HCPCS: 97605; A4218 ==

== ENCOUNTER 2019-10-09 10:47 | Outpatient (CLI) | payer OTHER ==
[~2019-10-09 10:47] MED LIST changes: +Lidocaine 2% PF 100 mg/5 ml Syringe ONE
--- NOTE | 2019-10-09 18:09 | HP ---
HISTORY OF PRESENT ILLNESS: Mr. Vasiliy Fulton is a very pleasant 39-year-old gentleman, who presents to the Wound Center for evaluation of a large wound of the left anterior lower leg subsequent to incision, drainage, and debridement of necrotizing fascitis and an abscess of the left lower leg on 09/17/[address] Aguilar. Previously on 08/22/2019, the patient had undergone incision and drainage of a simple abscess of the left lower leg by Dr. Erasto Griffin. The patient states that after undergoing incision and drainage of the simple abscess of the left lower leg on 08/22/2019, he had been receiving IV antibiotics as per Dr. Steve Samuels of Infectious Diseases after PICC line insertion. The patient states that at a followup visit with Dr. Samuels, he was referred for admission to [facility], and during his admission, underwent incision, drainage, and debridement of necrotizing fascitis and abscess of left lower leg on 09/17/2019 as stated previously. Upon discharge from [facility], the patient was referred to the Wound Center for assistance with wound VAC dressing changes. PAST MEDICAL HISTORY: History of cirrhosis. PAST SURGICAL HISTORY: 1. Lumbar laminectomy, remote. 2. Incision and drainage of abscess, simple of the left lower leg. 3. Incision, drainage, and debridement of necrotizing fasciitis and abscess of left lower leg. MEDICATIONS: Keflex 500 mg p.o. t.i.d. ALLERGIES: NO KNOWN DIAGNOSED ALLERGIES. SOCIAL HISTORY: Social history is negative for tobacco or EtOH use. FAMILY HISTORY: Family history is significant for diabetes mellitus. The patient's mother was diagnosed with diabetes mellitus. The patient's father was also diagnosed with diabetes mellitus. Family history is negative for coronary artery disease. PHYSICAL EXAMINATION: VITAL SIGNS: Temperature 98.1, pulse 72, respirations 19, and blood pressure 141/70. GENERAL: A 39-year-old gentleman, sitting on chair in examination room, in no acute distress. HEENT: Normocephalic and atraumatic. NECK: No nuchal rigidity. CHEST: Clear to auscultation. CV: Regular rate and rhythm. ABDOMEN: Soft. EXTREMITIES: A large wound of the left anterior lower leg is present, which measures approximately 14.4 x 4.1 cm. Undermining at the medial aspect of the left lower leg wound is present and is approximately 2.4 cm in length. Granulation tissue is present within the wound margins. Necrotic and nonviable tissue present within the wound margins was debrided with an excisional full-thickness debridement with the use of a curette. No purulent drainage is associated with the wound. No erythema of the skin surrounding the wound is present. No maceration of the skin of the periwound is noted. No significant edema of the left lower extremity is appreciated on exam today. NEURO: Grossly nonfocal. ASSESSMENT AND PLAN: 1. Large wound of left anterior lower leg. Negative pressure therapy will be continued with dressing changes of the wound VAC here in the Wound Center. No antibiotics will be prescribed today based upon the appearance of the wound. I will see Mr. Fulton again in 1 week. The patient understands and is in agreement with the preceding treatment plan. 2. History of cirrhosis. Job ID: [id number]
== END 2019-10-09 10:48 | disposition home or self-care (01) ==
LOC: WCC 10:47
PROVIDERS: ATTEND Family Medicine
DX: T81.89XA Other complications of procedures, not elsewhere classified, initial encounter (principal); Z87.19 Personal history of other diseases of the digestive system
CPT/HCPCS: A4218; J2001

== ENCOUNTER 2019-10-12 11:39 | Outpatient (CLI) | payer OTHER ==
[2019-10-12] MEDS ORDERED: Sodium Chloride 0.9% 15 ML NEB ONE (15:00)
== END 2019-10-12 11:40 | disposition home or self-care (01) ==
LOC: WCC 11:39
PROVIDERS: ATTEND Family Medicine
DX: S81.802D Unspecified open wound, left lower leg, subsequent encounter (principal)
CPT/HCPCS: 97605; A4218

== ENCOUNTER 2019-10-16 11:12 | Outpatient (CLI) | payer OTHER ==
--- NOTE | 2019-10-16 11:47 | PRG ---
DATE OF SERVICE: 10/16/2019 HISTORY: Mr. Vasiliy Fulton is a very pleasant 39-year-old gentleman, who presents to the Wound Center for evaluation of a large wound of the left anterior lower leg subsequent to incision, drainage, and debridement of necrotizing fasciitis and an abscess of the left lower leg on 09/17/[address] Aguilar. Previously on 08/22/2019, the patient had undergone incision and drainage of a simple abscess of the left lower leg by Dr. Erasto Griffin. The patient stated that after undergoing incision and drainage of the simple abscess of the left lower leg on 08/22/2019. He had been receiving IV antibiotics as per Dr. Steve Samuels of Infectious Diseases after PICC line insertion. The patient stated that at a followup visit with Dr. Samuels, he was referred for admission to [facility] and during his admission underwent incision, drainage, and debridement of necrotizing fascitis and abscess of the left lower leg on 09/17/2019 as stated previously. Upon discharge from [facility], the patient was referred to the Wound Center for assistance with dressing changes of the wound VAC. PHYSICAL EXAMINATION: VITAL SIGNS: Temperature 98.1, pulse 70, respirations 18, and blood pressure 145/110. EXTREMITIES: A large wound of the left anterior lower leg is present, which measures approximately 12.5 x 3.8 cm. The dimensions of the wound at the time of the patient's visit on 10/09/2019 were approximately 14.4 x 4.1 cm. Undermining at the medial aspect of the left lower leg wound is present and is approximately 1.7 cm in length. Undermining at the medial aspect of the left lower leg wound at the time of the patient's visit on 10/09/2019 was approximately 2.4 cm. Granulation tissue is present within the wound margins. Necrotic and nonviable tissue present within the wound margins was debrided with an excisional full-thickness debridement with the use of a curette. No purulent drainage is associated with the granulating wound. No erythema of the skin surrounding the wound is present. No maceration of the skin of the periwound is noted. No significant edema of the left lower extremity is appreciated on today's exam. ASSESSMENT AND PLAN: 1. Large wound of left anterior lower leg. Negative pressure therapy will be continued with dressing changes of the wound VAC here in the Wound Center. I will see Mr. Fulton again in 2 weeks. 2. History of cirrhosis. Job ID: [id number]
[2019-10-16] MEDS ORDERED: Lidocaine 2% PF 100 mg/5 ml Syringe ONE (15:00)
[2019-10-16] MEDS ORDERED: Sodium Chloride 0.9% 15 ML NEB ONE (15:00)
== END 2019-10-16 11:13 | disposition home or self-care (01) ==
LOC: WCC 11:12
PROVIDERS: ATTEND Family Medicine
DX: S81.802D Unspecified open wound, left lower leg, subsequent encounter (principal); Z87.19 Personal history of other diseases of the digestive system
CPT/HCPCS: A4218; J2001

== ENCOUNTER 2019-10-23 13:31 | Outpatient (CLI) | payer OTHER ==
[2019-10-23] MEDS ORDERED: Sodium Chloride 0.9% 15 ML NEB ONE (14:18)
== END 2019-10-23 13:32 | disposition home or self-care (01) ==
LOC: WCC 13:31
PROVIDERS: ATTEND Family Medicine
DX: S81.802D Unspecified open wound, left lower leg, subsequent encounter (principal)
CPT/HCPCS: 97605; A4218

== ENCOUNTER 2019-10-30 12:14 | Outpatient (CLI) | payer OTHER ==
--- NOTE | 2019-10-30 12:08 | PRG ---
DATE OF SERVICE: 10/30/2019 HISTORY: Mr. Vasiliy Fulton is a very pleasant 39-year-old gentleman, who presents to the wound center for evaluation of a large wound of the left anterior lower leg subsequent to incision, drainage, and debridement of necrotizing fasciitis and an abscess of the left lower leg on 09/17/[address] Aguilar. Previously on 08/22/2019, the patient had undergone incision and drainage of a simple abscess of the left lower leg by Dr. Erasto Griffin. The patient stated that after undergoing incision and drainage of the simple abscess of the left lower leg on 08/22/2019, he had been receiving IV antibiotics as per Dr. Steve Samuels of Infectious Diseases after PICC line insertion. The patient stated that at a followup visit with Dr. Samuels, he was referred for admission to [facility] and during his admission, underwent incision, drainage, and debridement of necrotizing fasciitis and abscess of the left lower leg on 09/17/2019 as stated previously. Upon discharge from [facility], the patient was referred to the wound center for assistance with dressing changes of the wound VAC. The patient has completed a course of negative pressure therapy and is now receiving dressing changes of Xeroform gauze for his left anterior lower leg wound. PHYSICAL EXAMINATION: VITAL SIGNS: Temperature 98.1, pulse 72, respirations 19, and blood pressure 142/82. EXTREMITIES: A large wound of the left anterior lower leg is present, which measures approximately 12.4 x 3.4 cm undermining at the medial aspect of the left lower leg wound is present and is approximately 1.4 cm in length. Granulation tissue is present within the wound margins. Necrotic and nonviable tissue present within the wound margins was debrided with an excisional full-thickness debridement with the use of a curette. No purulent drainage is associated with the granulating wound. No erythema of the skin surrounding the wound is present. No maceration of the skin of the periwound is noted. No significant edema of the left lower extremity is present on exam today. ASSESSMENT AND PLAN: 1. Large wound of left anterior lower leg dressing changes of Xeroform gauze followed by an ABD, Kerlix, and an Rosalino bandage will be continued on a daily basis after cleansing and irrigation. A plain packing strip will be utilized for the undermining associated with the wound. The patient will be seen by Dr. Aguilar in 1 week. I will see Mr. Fulton again in 2 weeks. 2. History of cirrhosis. Job ID: [id number]
[2019-10-30] MEDS ORDERED: Sodium Chloride 0.9% 15 ML NEB ONE (16:50)
[2019-10-30] MEDS ORDERED: Lidocaine 2% PF 100 mg/5 ml Syringe ONE (16:50)
== END 2019-10-30 12:15 | disposition home or self-care (01) ==
LOC: WCC 12:14
PROVIDERS: ATTEND Family Medicine
DX: T81.89XD Other complications of procedures, not elsewhere classified, subsequent encounter (principal); Z87.19 Personal history of other diseases of the digestive system
CPT/HCPCS: A4218; J2001

== ENCOUNTER 2019-11-15 09:07 | Outpatient (CLI) | payer OTHER ==
--- NOTE | 2019-11-15 08:47 | PRG ---
DATE OF SERVICE: 11/15/2019 HISTORY: Mr. Vasiliy Fulton is a very pleasant 39-year-old gentleman, who presents to the Wound Center for evaluation of a large wound of the left anterior lower leg subsequent to incision, drainage, and debridement of necrotizing fascitis and an abscess of the left lower leg on 09/17/[address] Aguilar. Previously on 08/22/2019, the patient had undergone incision and drainage of a simple abscess of the left lower leg by Dr. Erasto Griffin. The patient stated that after undergoing incision and drainage of the simple abscess of the left lower leg on 08/22/2019, he had been receiving IV antibiotics as per Dr. Steve Samuels of Infectious Diseases after PICC line insertion. The patient stated that at a followup visit with Dr. Samuels, he was referred for admission to [facility] and during his admission, underwent incision, drainage, and debridement of necrotizing fascitis and abscess of the left lower leg on 09/17/2019 as stated previously. Upon discharge from [facility], the patient was referred to the Wound Center for assistance with dressing changes of the wound VAC. The patient has completed a course of negative pressure therapy and continues to perform dressing changes of Xeroform gauze for his left anterior lower leg wound. PHYSICAL EXAMINATION: VITAL SIGNS: Temperature 98.2, pulse 74, respirations 19, and blood pressure 158/82. EXTREMITIES: A large wound of the left anterior lower leg is present, which measures approximately 10.2 x 2.2 cm. Undermining at the medial aspect of the left lower leg wound is present and is approximately 0.7 cm in length. Granulation tissue is present within the wound margins. Necrotic and nonviable tissue present within the wound margins were debrided with an excisional full-thickness debridement. No purulent drainage is associated with the wound. No erythema of the skin surrounding the wound is present. No maceration of the skin of the periwound is noted. No significant edema of the left lower extremity is present on exam today. ASSESSMENT AND PLAN: 1. Large wound of left anterior lower leg. Dressing changes of Xeroform gauze followed by an ABD, Kerlix, and an Rosalino bandage will be continued on a daily basis after cleansing and irrigation. A plain packing strip will be utilized for the undermining associated with the wound. The patient states he will be seen by Dr. Aguilar in 1 week. The patient will follow up in the wound center as needed after his evaluation by Dr. Aguilar. 2. History of cirrhosis. Job ID: [id number]
[2019-11-15] MEDS ORDERED: Sodium Chloride 0.9% 15 ML NEB ONE (16:57)
== END 2019-11-15 09:08 | disposition home or self-care (01) ==
LOC: WCC 09:07
PROVIDERS: ATTEND Family Medicine
DX: S81.802D Unspecified open wound, left lower leg, subsequent encounter (principal); Z87.19 Personal history of other diseases of the digestive system
CPT/HCPCS: A4218